=== PATIENT | female | born 2000 | race Caucasian/White ===

== ENCOUNTER 2019-12-10 12:31 | Emergency (ER) | payer OTHER ==
[2019-12-10 13:54] LABS: Absolute Lymphocytes (CBC) 2.4 K/uL (0.7-4.9); Basophils % 0.4 % (0-1.3); Hematocrit 38.7 % (36.0-45.0); MPV 7.9 fL (7.6-11.3); RBC Red Blood Cell Count 4.79 M/uL (3.86-4.86)
[2019-12-10 14:01] LABS: BUN Blood Urea Nitrogen 8 mg/dL (7-18); Bicarbonate 25 mmol/L (21-32); Glucose Level 95 mg/dL (74-106); Potassium 3.7 mmol/L (3.5-5.1); Sodium Level 141 mmol/L (136-145); Troponin (Emerg Dept Use Only) < 0.02 ng/mL (0.0-0.045)
--- NOTE | 2019-12-10 14:26 | RAD REPORT ---
EXAM DESCRIPTION: Amrita Single View12/10/2019 2:13 pm CLINICAL HISTORY: Chest pain COMPARISON: none FINDINGS: The lungs appear clear of acute infiltrate. The heart is normal size IMPRESSION: No acute abnormalities displayed
--- NOTE | 2019-12-10 14:41 | ER ---
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 Transition of care: patient was not received from another setting of care. Onset of symptoms was December 10, 2019. Risk Assessment: Do you want to hurt yourself or someone else? Patient reports no desire to harm self or others. Initial Sepsis Screen: Does the patient meet any 2 criteria? No. Patient's initial sepsis screen is negative. Does the patient have a suspected source of infection? No. Patient's initial sepsis screen is negative. Care prior to arrival: None. 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 - Social history:: Smoking status: Patient/guardian denies using tobacco. - Ebola Screening: : Patient negative for fever greater than or equal to 101.5 degrees Fahrenheit, and additional compatible Ebola Virus Disease symptoms Patient denies exposure to infectious person Patient denies travel to an Ebola-affected area in the 21 days before illness onset No symptoms or risks identified at this time. - Family history:: not pertinent. - Hospitalizations: : No recent hospitalization is reported. Screenin:09 Abuse screen: Denies threats or abuse. Nutritional screening: No deficits noted. em Tuberculosis screening: No symptoms or risk factors identified. Fall Risk None identified. Assessment: 13:48 General: Appears in no apparent distress. comfortable, Behavior is calm, cooperative, em appropriate for age, Denies fever. Pain: Complains of pain in chest Pain radiates to left arm Pain currently is 3 out of 10 on a pain scale. Neuro: Level of Consciousness is awake, alert, obeys commands, Oriented to person, place, time, situation, Appropriate for age. Cardiovascular: Reports chest pain, Capillary refill < 3 seconds Patient's skin is warm and dry. Rhythm is irregular. Respiratory: Reports pain with respiration Airway is patent Respiratory effort is even, unlabored, Respiratory pattern is regular, symmetrical. GI: Patient currently denies nausea, vomiting. Derm: Skin is intact, is healthy with good turgor, Skin is pink, warm \T\ dry. Musculoskeletal: Capillary refill < 3 seconds, Range of motion: intact in all extremities. 14:51 Reassessment: Patient appears in no apparent distress at this time. Patient and/or em family updated on plan of care and expected duration. Pain level reassessed. Patient is alert, oriented x 3, equal unlabored respirations, skin warm/dry/pink. Patient states feeling better. Vital Signs: 12:41 BP 144 / 75; Pulse 85; Resp 16; Temp 98.0; Pulse Ox 98% on R/A; Weight 84.37 kg; Height iw 5 ft. 7 in. (170.18 cm); Pain 3/10; 12:41 Body Mass Index 29.13 (84.37 kg, 170.18 cm) iw ED Course: 12:35 Patient arrived in ED. rg4 12:40 Triage completed. iw 12:41 Arm band placed on. iw 12:54 Harris Ann, RN is Primary Nurse. em 13:08 Seaed Fonseca MD is Attending Physician. rn 13:09 Patient has correct armband on for positive identification. Placed in gown. Bed in low em position. Call light in reach. Side rails up X2. 13:20 EKG done, by assessment technician. reviewed by Saeed Fonseca MD. at1 13:34 Initial lab(s) drawn, by me, sent to lab. Inserted saline lock: 22 gauge in left lt1 antecubital area, using aseptic technique. 14:13 XRAY Chest (1 view) In Process Unspecified. EDMS 14:50 No provider procedures requiring assistance completed. IV discontinued, intact, em bleeding controlled, No redness/swelling at site. Pressure dressing applied. Administered Medications: No medications were administered Outcome: 14:41 Discharge ordered by . rn 14:50 Discharged to home ambulatory, with family. em 14:50 Condition: good 14:50 Discharge instructions given to patient, Instructed on discharge instructions, follow up and referral plans. Demonstrated understanding of instructions, follow-up care. 14:51 Patient left the ED. em Signatures: Dispatcher [employer] EDHarris Carey RN RN em Williams, Irene, RN RN iw Nieto, Roman, MD MD rn Gonzales, Amanda, tong setter EKG Tat1 Gi Pathak rg4 Shepherd, Angelica lt1
--- NOTE | 2019-12-10 14:42 | EDPHYS ---
Physician Documentation [facility] Name: Kristina Nathan Age: 19 yrs Sex: Female : 2000 Arrival Date: 12/10/2019 Time: 12:35 Bed 28 Private MD: ED Physician Saeed Fonseca HPI: 12/10 14:33 This 19 yrs old Female presents to ER via Ambulatory with complaints of rn Abnormal EKG. 14:36 The patient or guardian reports chest pain that is located primarily in the anterior rn chest wall. The pain radiates to the left arm. Associated signs and symptoms: The patient has no apparent associated signs or symptoms, Pertinent negatives: abdominal pain, shortness of breath, syncope, vomiting. The chest pain is described as dull. Duration: The patient or guardian reports multiple episodes, that are intermittent. Modifying factors: The symptoms are alleviated by nothing. the symptoms are aggravated by nothing. Severity of pain: At its worst the pain was moderate in the emergency department the pain has improved. The patient has not experienced similar symptoms in the past. Sent by clinic for abnormal ecg and chest pain, has been going on for a few weeks, has hx of WPW and ablation but not totally successful, has been having cough and bronchitis for some time, and now having left sided chest pain, dull/achy, intermittent, and quick on and off. . 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 - Social history:: Smoking status: Patient/guardian denies using tobacco. - Ebola Screening: : Patient negative for fever greater than or equal to 101.5 degrees Fahrenheit, and additional compatible Ebola Virus Disease symptoms Patient denies exposure to infectious person Patient denies travel to an Ebola-affected area in the 21 days before illness onset No symptoms or risks identified at this time. - Family history:: not pertinent. - Hospitalizations: : No recent hospitalization is reported. ROS: 14:36 Constitutional: Negative for fever, chills, and weight loss, Eyes: Negative for injury, rn pain, redness, and discharge, Neck: Negative for injury, pain, and swelling, Cardiovascular: Negative for palpitations, and edema, Respiratory: Negative for shortness of breath, cough, wheezing, and pleuritic chest pain, Abdomen/GI: Negative for abdominal pain, nausea, vomiting, diarrhea, and constipation, MS/Extremity: Negative for injury and deformity, Skin: Negative for injury, rash, and discoloration, Neuro: Negative for headache, weakness, numbness, tingling, and seizure. Exam: 14:36 Constitutional: This is a well developed, well nourished patient who is awake, alert, rn and in no acute distress. Sitting upright and laughing. Head/Face: Normocephalic, atraumatic. Eyes: Pupils equal round and reactive to light, extra-ocular motions intact. Lids and lashes normal. Conjunctiva and sclera are non-icteric and not injected. Cornea within normal limits. Periorbital areas with no swelling, redness, or edema. Cardiovascular: Regular rate and rhythm. No pulse deficits. Respiratory: No increased work of breathing, no retractions or nasal flaring. Abdomen/GI: soft, non-tender Skin: Warm, dry with normal turgor. Normal color with no rashes, no lesions, and no evidence of cellulitis. MS/ Extremity: Pulses equal, no cyanosis. Neurovascular intact. Full, normal range of motion. Equal circumference. Neuro: Awake and alert, GCS 15, oriented to person, place, time, and situation. Cranial nerves II-XII grossly intact. Motor strength 5/5 in all extremities. Sensory grossly intact. 14:40 ECG was reviewed by the Attending Physician. rn Vital Signs: 12:41 BP 144 / 75; Pulse 85; Resp 16; Temp 98.0; Pulse Ox 98% on R/A; Weight 84.37 kg; Height iw 5 ft. 7 in. (170.18 cm); Pain 3/10; 12:41 Body Mass Index 29.13 (84.37 kg, 170.18 cm) iw MDM: 13:08 Patient medically screened. rn 14:36 Differential diagnosis: acute pericarditis, chest wall pain, costochondritis, pleurisy, rn pneumothorax. Data reviewed: vital signs, nurses notes, lab test result(s), EKG, radiologic studies, plain films, and as a result, I will discharge patient. Counseling: I had a detailed discussion with the patient and/or guardian regarding: the historical points, exam findings, and any diagnostic results supporting the discharge/admit diagnosis, lab results, radiology results, the need for outpatient follow up, to return to the emergency department if symptoms worsen or persist or if there are any questions or concerns that arise at home. Special discussion: Based on the patient's history, exam, and Dx evaluation, there is no indication for emergent intervention or inpatient Tx. It is understood by the patient/guardian that if the Sx's persist or worsen they need to return immediately for re-evaluation. I discussed with the patient/guardian in detail that at this point there is no indication for admission to the hospital. It is understood, however, that if the symptoms persist or worsen the patient needs to return immediately for re-evaluation. 12/10 13:21 Order name: CBC with Diff; Complete Time: 14: rn 12/10 13:21 Order name: Basic Metabolic Panel; Complete Time: 14: rn 12/10 13:21 Order name: Troponin (emerg Dept Use Only); Complete Time: 14:32 rn 12/10 13:21 Order name: D-Dimer; Complete Time: 14:32 rn 12/10 13:21 Order name: EKG; Complete Time: 13:22 rn 12/10 13:21 Order name: XRAY Chest (1 view); Complete Time: 14:32 rn 12/10 13:21 Order name: IV Start; Complete Time: :34 rn 12/10 13:21 Order name: EKG - Nurse/Tech; Complete Time: :34 rn EC:40 Rate is 73 beats/min. Rhythm is regular. QRS [place] is Normal. [place] interval is normal. QRS rn interval is normal. QT interval is normal. No Q waves. T waves are Normal. No ST changes noted. Clinical impression: NSR w/ Non-specific ST/T Changes. Interpreted by me. Reviewed by me. Administered Medications: No medications were administered Disposition: 12/10/19 14:41 Discharged to Home. Impression: Chest pain, unspecified. - Condition is Stable. - Discharge Instructions: Nonspecific Chest Pain. - Medication Reconciliation Form, Thank You Letter, Antibiotic Education, Prescription Opioid Use form. - Follow up: Private Physician; When: As needed; Reason: Recheck today's complaints, Re-evaluation by your physician. - Problem is an ongoing problem. - Symptoms have improved. Signatures: Dispatcher [employer] Harris Jerry, Ene Blackwood RN, RN RN iw Nieto, Roman, MD MD rn Corrections: (The following items were deleted from the chart) 14:51 14:41 12/10/2019 14:41 Discharged to Home. Impression: Chest pain, unspecified. em Condition is Stable. Forms are Medication Reconciliation Form, Thank You Letter, Antibiotic Education, Prescription Opioid Use. Follow up: Private Physician; When: As needed; Reason: Recheck today's complaints, Re-evaluation by your physician. Problem is an ongoing problem. Symptoms have improved. rn
--- NOTE | 2019-12-10 14:54 | EKG ---
Test Date: 2019-12-10 Test Time: 13:08:57 Poultry Buyer: PRIMO MEASUREMENT RESULTS: Intervals: Rate: 73 DE: 156 QRSD: 92 QT: 410 QTc: 451 [place]: P: 50 DE: 156 QRS: 13 T: 19 INTERPRETIVE STATEMENTS: Normal sinus rhythm with sinus arrhythmia normal ECG No previous ECG available for comparison Electronically Signed On 12-10-19 14:53:42 MASTER SCHEDULER by Adarsh Wall
[2019-12-10 16:36] VITALS: BP 144/75; TEMP 98; O2SAT 98
== END 2019-12-10 14:51 | disposition home or self-care (01) ==
LOC: ER 12:31
DX: R07.9 Chest pain, unspecified (principal)
CPT/HCPCS: 36415; 71045; 80048; 84484; 85025; 85379; 93005; 99284

== ENCOUNTER 2020-06-13 20:16 | Emergency (ER) | payer OTHER ==
--- OUTSIDE RECORDS SUMMARY | 2020-06-13 20:29 | XMS REPORT | Continuity of Care Document ---
:2000 Author Organization [facility] t Address [address] [place] [address] Care Team Providers Name Role Phone Duke RN Attending Clinician Unavailable Beth ROCK M Attending Clinician Pob1, Care Clinic Attending Clinician Unavailable Doctor Unassigned, Name Attending Clinician Unavailable Problems This patient has no known problems. Allergies, Adverse Reactions, Alerts This patient has no known allergies or adverse reactions. Medications This patient has no known medications. Procedures This patient has no known procedures. Encounters Start End Encounter Admission Attending Care Care Encounter Source Date/Time Date/Time Type Type Clinicians Facility Department ID 2020-02-23 2020-02-23 Telephone [facility] Wall [id number] 00:00:00 00:00:00 Ariana THOMPSON [id number] [facility] [id number] 2020-02-22 2020-02-22 Telephone Beth [facility] [id number] 00:00:00 00:00:00 , [facility] [id number] [facility] [id number] Professio [phone] [address] 2020-02-21 2020-02-21 Urgent Pob1, Acute [facility] [id number] 12:37:37 12:57:37 [facility] [id number] [place] [id number] Professio [phone] nal [address] 2020-02-21 2020-02-21 Orders Doctor PECK [id number] 00:00:00 00:00:00 Only Unassigned, CRISTY [id number] [place] [facility] [id number] Results This patient has no known results.
[2020-06-13 22:32] LABS: Absolute Lymphocytes (CBC) 3.4 K/uL (0.7-4.9); Basophils % 0.5 % (0-1.3); Hematocrit 37.6 % (36.0-45.0); Lymphocytes % 21.5 % (15.3-44.8); RBC Red Blood Cell Count 4.62 M/uL (3.86-4.86)
[2020-06-13 22:55] LABS: ALT/SGPT 19 U/L (12-78); AST/SGOT 13 U/L (15-37); Albumin 3.3 g/dL (3.4-5.0); Alkaline Phosphatase 84 U/L (45-117); BUN Blood Urea Nitrogen 12 mg/dL (7-18); Bicarbonate 24 mmol/L (21-32); Bilirubin Direct < 0.1 mg/dL (0-0.2); Bilirubin Total 0.2 mg/dL (0.2-1.0); Glucose Level 102 mg/dL (74-106); Magnesium 2.3 mg/dL (1.8-2.4); NT PRO-BNP 68 pg/mL (<125); Potassium 3.7 mmol/L (3.5-5.1); Protein, Total 7.6 g/dL (6.4-8.2); Sodium Level 140 mmol/L (136-145)
--- NOTE | 2020-06-13 23:08 | EDPHYS ---
Physician Documentation [facility] Name: Kristina Nathan Age: 19 yrs Sex: Female : 2000 Arrival Date: 06/13/2020 Time: 20:22 Bed 14 Private MD: ED Physician Manuel Naranjo HPI: 06/13 22:21 This 19 yrs old Female presents to ER via Ambulatory with complaints of jr8 Fainting. 22:21 The patient has experienced syncope. Onset: The symptoms/episode began/occurred jr8 acutely, today. Duration: This was a single episode. Context: occurred at work. Associated injury: The patient did not suffer any apparent associated injury. Associated signs and symptoms: Pertinent positives: dizziness. Current symptoms: headache, that is mild. The patient has not experienced similar symptoms in the past. The patient has not recently seen a physician. Patient stated that he just findings with a small gibson at work. Went to take a drink of her soda. Stated that she started to feel dizzy and then woke up on floor. Then had panic attack. This was about 17:00 this evening. Feeling better now but wanted to make sure she was ok . 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 - Social history:: Smoking status: Patient denies any tobacco usage or history of. Patient uses alcohol, only on a social basis. Patient/guardian denies using IV drugs. ROS: 22:21 Eyes: Negative for injury, pain, redness, and discharge, ENT: Negative for injury, jr8 pain, and discharge, Neck: Negative for injury, pain, and swelling, Cardiovascular: Negative for chest pain, palpitations, and edema, Respiratory: Negative for shortness of breath, cough, wheezing, and pleuritic chest pain, Abdomen/GI: Negative for abdominal pain, nausea, vomiting, diarrhea, and constipation, Back: Negative for injury and pain, MS/Extremity: Negative for injury and deformity, Skin: Negative for injury, rash, and discoloration. 22:21 Neuro: Positive for syncope. Exam: 22:21 Eyes: Pupils equal round and reactive to light, extra-ocular motions intact. Lids and jr8 lashes normal. Conjunctiva and sclera are non-icteric and not injected. Cornea within normal limits. Periorbital areas with no swelling, redness, or edema. ENT: Nares patent. No nasal discharge, no septal abnormalities noted. Tympanic membranes are normal and external auditory canals are clear. Oropharynx with no redness, swelling, or masses, exudates, or evidence of obstruction, uvula midline. Mucous membranes moist. Neck: Trachea midline, no thyromegaly or masses palpated, and no cervical lymphadenopathy. Supple, full range of motion without nuchal rigidity, or vertebral point tenderness. No Meningismus. Cardiovascular: Regular rate and rhythm with a normal S1 and S2. No gallops, murmurs, or rubs. Normal PMI, no JVD. No pulse deficits. Respiratory: Lungs have equal breath sounds bilaterally, clear to auscultation and percussion. No rales, rhonchi or wheezes noted. No increased work of breathing, no retractions or nasal flaring. Abdomen/GI: Soft, non-tender, with normal bowel sounds. No distension or tympany. No guarding or rebound. No evidence of tenderness throughout. Back: No spinal tenderness. No costovertebral tenderness. Full range of motion. Skin: Warm, dry with normal turgor. Normal color with no rashes, no lesions, and no evidence of cellulitis. MS/ Extremity: Pulses equal, no cyanosis. Neurovascular intact. Full, normal range of motion. Neuro: Awake and alert, GCS 15, oriented to person, place, time, and situation. Cranial nerves II-XII grossly intact. Motor strength 5/5 in all extremities. Sensory grossly intact. Cerebellar exam normal. Normal gait. Vital Signs: 20:42 BP 140 / 92; Pulse 85; Resp 18; Temp 98.0; Pulse Ox 100% ; Pain 0/10; ll1 22:13 BP 134 / 83 Sitting; Pulse 85; Resp 18; Pulse Ox 100% on R/A; ks7 22:13 BP 133 / 76 Supine; Pulse 74; Resp 16; Pulse Ox 100% on R/A; ks7 22:15 BP 149 / 70 Standing; Pulse 78; Resp 17; Pulse Ox 98% on R/A; ks7 22:26 BP 133 / 76; Pulse 74; Resp 16; Temp 98.2(O); Pulse Ox 100% on R/A; Pain 0/10; ks7 23:13 BP 124 / 75; Pulse 72; Resp 16; Temp 98.4(O); Pulse Ox 100% on R/A; Pain 0/10; ks7 22:13 denies dizziness ks7 22:15 denies dizziness ks7 MDM: 21:32 Patient medically screened. jr8 23:06 Data reviewed: vital signs, nurses notes, lab test result(s), EKG, radiologic studies, jr8 plain films, and as a result, I will discharge patient. Data interpreted: Pulse oximetry: on room air is 100 %. Interpretation: normal. Counseling: I had a detailed discussion with the patient and/or guardian regarding: the historical points, exam findings, and any diagnostic results supporting the discharge/admit diagnosis, the presence of at least one elevated blood pressure reading (>120/80) during this emergency department visit, radiology results, the need for outpatient follow up, a family practitioner, to return to the emergency department if symptoms worsen or persist or if there are any questions or concerns that arise at home. ED course: Patient feeling better. Hemodynamically stable. No acute findings on labs, ecg, or imagine. Recommended f/u with PCP. If worse or if it happens again to come back to ED. patient good with plan . 06/13 21:59 Order name: Basic Metabolic Panel; Complete Time: 23:06 [facility] 06/13 21:59 Order name: CBC with Diff; Complete Time: 22:44 [facility] 06/13 21:59 Order name: LFT's; Complete Time: 23:06 06/13 21:59 Order name: Magnesium; Complete Time: 23:06 [facility] 06/13 21:59 Order name: NT PRO-BNP; Complete Time: 23:06 [facility] 06/13 21:59 Order name: XRAY Chest (1 view) 06/13 21:59 Order name: EKG; Complete Time: 21:59 06/13 21:59 Order name: Cardiac monitoring; Complete Time: 22:24 [facility] 06/13 21:59 Order name: EKG - Nurse/Tech; Complete Time: 22:24 [facility] 06/13 21:59 Order name: IV Saline Lock; Complete Time: 22:24 8 06/13 21:59 Order name: Labs collected and sent; Complete Time: 22:24 8 06/13 21:59 Order name: O2 Per Protocol; Complete Time: 22:24 8 06/13 21:59 Order name: O2 Sat Monitoring; Complete Time: 22:25 06/13 21:59 Order name: Orthostatics; Complete Time: 22:24 8 Administered Medications: No medications were administered Disposition: 06/14 00:39 Co-signature as Attending Physician, Manuel Naranjo MD. epifanio Disposition: 06/13/20 23:07 Discharged to Home. Impression: Syncope and collapse. - Condition is Stable. - Discharge Instructions: Syncope. - Work release form, Medication Reconciliation Form, Thank You Letter, Antibiotic Education, Prescription Opioid Use form. - Follow up: Private Physician; When: 2 - 3 days; Reason: Recheck today's complaints, Continuance of care, Re-evaluation by your physician. - Problem is new. - Symptoms are resolved. Signatures: Dispatcher [employer] EDManuel Siddiqi MD MD pkl Roszak, Josh, PA PA jr8 Javon Butler RN RN ll1 Gabriella Dominique RN RN ks7 Corrections: (The following items were deleted from the chart) 06/13 23:41 20:46 PMHx: WPW; 1 ks7 23:41 20:46 PMHx: Anxiety; 1 ks7 23:41 20:46 PSHx: cardiac ablation; 1 ks7 23:42 23:07 06/13/2020 23:07 Discharged to Home. Impression: Syncope and collapse. Condition ks7 is Stable. Forms are Medication Reconciliation Form, Thank You Letter, Antibiotic Education, Prescription Opioid Use. Follow up: Private Physician; When: 2 - 3 days; Reason: Recheck today's complaints, Continuance of care, Re-evaluation by your physician. Problem is new. Symptoms are resolved. jr8
--- NOTE | 2020-06-13 23:08 | ER ---
Nurse's Notes [facility] Name: Kristina Nathan Age: 19 yrs Sex: Female : 2000 Arrival Date: 06/13/2020 Time: 20:22 Bed 14 Private MD: Diagnosis: Syncope and collapse Presentation: 06/13 20:42 Chief complaint: Patient states: Sudden onset of left upper abdominal pain today at ll1 1700 at work. Got dizzy, then passed out onto floor. No new diet. Only new med. for 1.5 months for arthritis pain. No N/V/D. Coronavirus screen: Patient denies a cough. Patient denies shortness of breath or difficulty breathing. Patient denies measured and/or subjective temperature greater than 100.4F prior to today's visit. Patient denies travel on a cruise ship or to a country the [facility] currently lists as an affected area. Patient denies contact with known and/or suspected case of COVID-19. Proceed with normal triage. Ebola Screen: Patient denies travel to an Ebola-affected area in the 21 days before illness onset. Initial Sepsis Screen: Does the patient meet any 2 criteria? No. Patient's initial sepsis screen is negative. Risk Assessment: Do you want to hurt yourself or someone else? Patient reports no desire to harm self or others. Onset of symptoms was June 13, 2020. 20:42 Method Of Arrival: Ambulatory ll1 20:42 Acuity: WILLIE 3 ll1 23:41 Initial Sepsis Screen: Does the patient have a suspected source of infection? No. ks7 Patient's initial sepsis screen is negative. Triage Assessment: 22:26 General: Appears in no apparent distress. Behavior is calm, cooperative. Pain: Denies ks7 pain. 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 - Social history:: Smoking status: Patient denies any tobacco usage or history of. Patient uses alcohol, only on a social basis. Patient/guardian denies using IV drugs. Screenin:27 Abuse screen: Denies threats or abuse. Nutritional screening: No deficits noted. ks7 Tuberculosis screening: No symptoms or risk factors identified. Fall Risk Fall in past 12 months (25 points). Secondary diagnosis (15 points) IV access (20 points). Ambulatory Aid- None/Bed Rest/Nurse Assist (0 pts). Gait- Normal/Bed Rest/Wheelchair (0 pts) Mental Status- Oriented to own ability (0 pts). Total Santacruz Fall Scale indicates High Risk Score (45 or more points). Fall prevention measures have been instituted. Side Rails Up X 2 As available patient and family educated on Fall Prevention Program and Strategies. Assessment: 22:27 General: Reports pt comes in from home. states she had syncopal episode at work today. ks7 passed out for a few minutes. pt denies any trauma, denies pain to extremities, c/o mild KULKARNI. pt has hx of WPW syndrome. Pain: Complains of pain in headache Pain currently is 4 out of 10 on a pain scale. 23:40 Reassessment: Patient is alert, oriented x 3, equal unlabored respirations, skin ks7 warm/dry/pink. Vital Signs: 20:42 BP 140 / 92; Pulse 85; Resp 18; Temp 98.0; Pulse Ox 100% ; Pain 0/10; ll1 22:13 BP 134 / 83 Sitting; Pulse 85; Resp 18; Pulse Ox 100% on R/A; ks7 22:13 BP 133 / 76 Supine; Pulse 74; Resp 16; Pulse Ox 100% on R/A; ks7 22:15 BP 149 / 70 Standing; Pulse 78; Resp 17; Pulse Ox 98% on R/A; ks7 22:26 BP 133 / 76; Pulse 74; Resp 16; Temp 98.2(O); Pulse Ox 100% on R/A; Pain 0/10; ks7 23:13 BP 124 / 75; Pulse 72; Resp 16; Temp 98.4(O); Pulse Ox 100% on R/A; Pain 0/10; ks7 22:13 denies dizziness ks7 22:15 denies dizziness ks7 Vitals: 22:27 Cardiac Rhythm Assessment Sinus rhythm. ks7 ED Course: 20:22 Patient arrived in ED. ag3 20:45 Triage completed. ll1 20:46 Arm band placed on Patient notified of wait time. ll1 21:32 Tarik Tejeda PA is PHCP. jr8 21:32 Manuel Naranjo MD is Attending Physician. jr8 22:05 Gabriella Dominique, RN is Primary Nurse. ks7 22:24 Basic Metabolic Panel Sent. ks7 22:24 CBC with Diff Sent. ks7 22:24 LFT's Sent. ks7 22:24 Magnesium Sent. ks7 22:24 NT PRO-BNP Sent. ks7 22:24 XRAY Chest (1 view) Sent. ks7 22:27 Resting quietly. ks7 22:27 Patient has correct armband on for positive identification. Placed in gown. Bed in low ks7 position. Call light in reach. Side rails up X2. 22:27 No provider procedures requiring assistance completed. Inserted saline lock: 20 gauge ks7 in left antecubital area, using aseptic technique. Blood collected. 22:29 XRAY Chest (1 view) In Process Unspecified. EDMS 23:40 IV discontinued, intact, bleeding controlled, No redness/swelling at site. Pressure ks7 dressing applied. Administered Medications: No medications were administered Outcome: 23:07 Discharge ordered by . jr8 23:40 Discharged to home ambulatory, with family. ks7 23:40 Condition: good 23:40 Discharge instructions given to patient, Instructed on discharge instructions, Demonstrated understanding of instructions, Work not given to pt 23:42 Patient left the ED. ks7 Signatures: Dispatcher [employer] EDMS Tarik Tejeda PA PA jr8 Christina Allen ag3 Javon Butler RN RN 1 Gabriella Dominique, RN RN ks7 Corrections: (The following items were deleted from the chart) 22:30 22:27 Fall Risk Fall in past 12 months (25 points). Secondary diagnosis (15 points) IV ks7 access (20 points). Ambulatory Aid- None/Bed Rest/Nurse Assist (0 pts). Gait- Normal/Bed Rest/Wheelchair (0 pts) Mental Status- Oriented to own ability (0 pts). Total Santacruz Fall Scale indicates High Risk Score (45 or more points). ks7 23:41 20:46 PMHx: WPW; ll1 ks7 23:41 20:46 PMHx: Anxiety; ll1 ks7 23:41 20:46 PSHx: cardiac ablation; ll1 ks7
[2020-06-14 00:33] VITALS: O2SAT 100
[2020-06-14 00:35] VITALS: BP 124/75; TEMP 98.4
--- NOTE | 2020-06-14 11:24 | RAD REPORT ---
EXAM DESCRIPTION: Amrita Single View06/13/2020 10:29 pm CLINICAL HISTORY: Abdominal pain COMPARISON: November 2019 FINDINGS: The lungs appear clear of acute infiltrate. The heart is normal size IMPRESSION: No acute abnormalities displayed
== END 2020-06-13 23:42 | disposition home or self-care (01) ==
LOC: ER 20:16
DX: R55 Syncope and collapse (principal); I45.6 Pre-excitation syndrome
CPT/HCPCS: 36415; 71045; 80048; 80076; 83735; 83880; 85025; 99284

== ENCOUNTER 2022-03-11 19:31 | Emergency (ER) | payer OTHER ==
[2022-03-11 23:08] LABS: Absolute Lymphocytes (CBC) 3.4 K/uL (0.7-4.9); Hematocrit 36.9 % (36.0-45.0); Lymphocytes % 21.1 % (15.3-44.8); MPV 7.7 fL (7.6-11.3); RBC Red Blood Cell Count 4.64 M/uL (3.86-4.86)
[2022-03-11 23:26] LABS: Urine Blood 1+ (Negative); Urine Glucose Negative (Negative); Urine Protein Negative (Negative); Urine Specific Gravity >=1.030 (1.005-1.030)
[2022-03-11 23:35] LABS: BUN Blood Urea Nitrogen 14 mg/dL (7-18); Bicarbonate 24 mmol/L (21-32); Glucose Level 93 mg/dL (74-106); Potassium 3.6 mmol/L (3.5-5.1); Sodium Level 137 mmol/L (136-145)
[2022-03-11 23:48] LABS: HCG, Quantitative 52337 mIU/mL (1-3)
--- NOTE | 2022-03-11 23:58 | ER ---
Nurse's Notes [facility] Name: Kristina Nathan Age: 21 yrs Sex: Female : 2000 Arrival Date: 03/11/2022 Time: 19:33 Bed 24 Private MD: Diagnosis: Threatened Presentation: 03/11 19:43 Chief complaint: Patient states: I started bleeding this morning and I am about 2 month jb4 . This morning it was light and brown with clots. Now it is heavy and bright red. Coronavirus screen: At this time, the client does not indicate any symptoms associated with coronavirus-19. Ebola Screen: No symptoms or risks identified at this time. Initial Sepsis Screen: Does the patient meet any 2 criteria? No. Patient's initial sepsis screen is negative. Does the patient have a suspected source of infection? No. Patient's initial sepsis screen is negative. Risk Assessment: Do you want to hurt yourself or someone else? Patient reports no desire to harm self or others. Onset of symptoms was March 11, 2022. Transition of care: patient was not received from another setting of care. 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 - Social history:: Smoking status: Patient reports the use of cigarette tobacco products, Patient/guardian denies using alcohol, street drugs. Screenin:20 Abuse screen: Denies threats or abuse. Nutritional screening: No deficits noted. fu Tuberculosis screening: No symptoms or risk factors identified. Fall Risk None identified. Assessment: 21:18 General: Appears in no apparent distress. Behavior is calm, cooperative, appropriate fu for age, Denies fever, feeling ill, fatigue, chills. Pain: Complains of pain in abdomen Pain does not radiate. Pain currently is 2 out of 10 on a pain scale. Quality of pain is described as crampy. Neuro: Level of Consciousness is awake, alert, Oriented to person, place, time, situation, Moves all extremities. Gait is steady, Speech is normal, Facial symmetry appears normal. : Reports vaginal bleeding that is with clots. Derm: No signs and/or symptoms reported regarding the dermatologic system. 22:00 Reassessment: No changes from previously documented assessment. Patient and/or family fu updated on plan of care and expected duration. Pain level reassessed. Patient is alert, oriented x 3, equal unlabored respirations, skin warm/dry/pink. 23:50 Reassessment: Patient and/or family updated on plan of care and expected duration. Pain fu level reassessed. Patient is alert, oriented x 3, equal unlabored respirations, skin warm/dry/pink. Vital Signs: 19:43 BP 126 / 81; Pulse 88; Resp 18; Temp 98.1(TE); Pulse Ox 100% on R/A; Weight 94.35 kg jb4 (R); Height 5 ft. 7 in. (170.18 cm) (R); Pain 2/10; 21:16 BP 102 / 53; Pulse 80; Resp 16; Temp 98.(O); Pulse Ox 100% ; Pain 2/10; fu 22:30 BP 132 / 58; Pulse 72; Resp 16; Pulse Ox 100% on R/A; fu 23:00 BP 132 / 96; Pulse 82; Resp 16; Pulse Ox 96% on R/A; fu 23:30 BP 132 / 67; Pulse 71; Resp 16; Pulse Ox 100% ; fu 23:47 BP 132 / 87; Pulse 81; Resp 16; Pulse Ox 100% on R/A; fu 19:43 Body Mass Index 32.58 (94.35 kg, 170.18 cm) jb4 ED Course: 19:33 Patient arrived in ED. mr 19:41 Estevan Schwartz, THIEN is Primary Nurse. jb4 19:46 Triage completed. jb4 19:46 Arm band placed on right wrist. jb4 19:57 Marcial John PA is PHCP. cp 19:57 Wyatt Sullivan MD is Attending Physician. cp 22:40 Inserted saline lock: 20 gauge in left antecubital area, using aseptic technique. Blood fu collected. 22:59 Chriss Campbell, RN is Primary Nurse. fu 23:28 US Transvaginal Ob In Process Unspecified. EDMS 23:58 Patient has correct armband on for positive identification. Bed in low position. Call fu light in reach. 23:58 No provider procedures requiring assistance completed. fu 03/12 00:12 IV discontinued, bleeding controlled, No redness/swelling at site. Pressure dressing fu applied. Administered Medications: No medications were administered Outcome: 03/11 23:57 Discharge ordered by MD. cp 03/12 00:12 Discharged to home ambulatory, with significant other. fu Condition: good Discharge instructions given to patient, Instructed on discharge instructions, follow up and referral plans. Demonstrated understanding of instructions, follow-up care, Prescriptions given X 1. 00:14 Patient left the ED. fu Signatures: Dispatcher [employer] EDAL Valerie Murrell Corey, DOE PA cp Estevan Schwartz, RN RN jb4 Chriss Campbell, RN RN fu
--- NOTE | 2022-03-11 23:58 | EDPHYS ---
Physician Documentation [facility] Name: Kristina Nathan Age: 21 yrs Sex: Female : 2000 Arrival Date: 03/11/2022 Time: 19:33 Bed 24 Private MD: ED Physician Wyatt Sullivan HPI: 03/11 22:30 This 21 yrs old Female presents to ER via Ambulatory with complaints of Vaginal cp Bleeding, + Preg <12wks, Abdominal Cramping. 22:30 The patient presents to the emergency department with abdominal pain, of the right cp lower quadrant and left lower quadrant, that started today, described as crampy, vaginal bleeding, that is moderate, with clots. The estimated gestational age is 7 weeks. course: care: at a clinic, Leakage of Fluid: none appreciated, Ultrasound: the patient had an ultrasound. Previous pregnancies: in previous pregnancies patient has had spontaneous . Associated signs and symptoms: The patient has no apparent associated signs or symptoms. 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 - Social history:: Smoking status: Patient reports the use of cigarette tobacco products, Patient/guardian denies using alcohol, street drugs. ROS: 22:35 Constitutional: Negative for body aches, chills, fever, poor PO intake. cp 22:35 Eyes: Negative for injury, pain, redness, and discharge. cp 22:35 ENT: Negative for drainage from ear(s), ear pain, sore throat, difficulty swallowing, difficulty handling secretions. 22:35 Cardiovascular: Negative for chest pain. 22:35 Respiratory: Negative for cough, shortness of breath, wheezing. 22:35 Abdomen/GI: Positive for abdominal cramps, Negative for vomiting, diarrhea, constipation. 22:35 Back: Negative for pain at rest, pain with movement. 22:35 : Positive for vaginal bleeding. 22:35 Neuro: Negative for altered mental status, weakness. 22:35 All other systems are negative. Exam: 22:40 Head/Face: Normocephalic, atraumatic. cp 22:40 Constitutional: The patient appears in no acute distress, alert, awake, comfortable, non-toxic, well developed, well nourished. 22:40 Eyes: Periorbital structures: appear normal, Conjunctiva: normal, no exudate, no cp injection, Lids and lashes: appear normal, bilaterally. 22:40 ENT: External ear(s): are unremarkable, Nose: is normal, Mouth: Lips: moist, Oral mucosa: moist, Posterior pharynx: Airway: no evidence of obstruction, patent. 22:40 Chest/axilla: Inspection: normal. 22:40 Cardiovascular: Rate: normal, Rhythm: regular. 22:40 Respiratory: the patient does not display signs of respiratory distress, Respirations: normal, no use of accessory muscles, no retractions, labored breathing, is not present, Breath sounds: are clear throughout, no decreased breath sounds, no stridor, no wheezing. 22:40 Abdomen/GI: Inspection: abdomen appears normal, Palpation: soft, in all quadrants, mild abdominal tenderness, in the suprapubic area and left lower quadrant, rebound tenderness, is not appreciated, voluntary guarding, is not appreciated, involuntary guarding, is not appreciated. 22:40 Back: CVA tenderness, is absent. Vital Signs: 19:43 BP 126 / 81; Pulse 88; Resp 18; Temp 98.1(TE); Pulse Ox 100% on R/A; Weight 94.35 kg jb4 (R); Height 5 ft. 7 in. (170.18 cm) (R); Pain 2/10; 21:16 BP 102 / 53; Pulse 80; Resp 16; Temp 98.(O); Pulse Ox 100% ; Pain 2/10; fu 22:30 BP 132 / 58; Pulse 72; Resp 16; Pulse Ox 100% on R/A; fu 23:00 BP 132 / 96; Pulse 82; Resp 16; Pulse Ox 96% on R/A; fu 23:30 BP 132 / 67; Pulse 71; Resp 16; Pulse Ox 100% ; fu 23:47 BP 132 / 87; Pulse 81; Resp 16; Pulse Ox 100% on R/A; fu 19:43 Body Mass Index 32.58 (94.35 kg, 170.18 cm) jb4 MDM: 20:36 Patient medically screened. cp 22:30 Differential diagnosis: STD, ectopic , UTI. cp 23:55 Data reviewed: vital signs, nurses notes, lab test result(s), radiologic studies, cp ultrasound. 23:55 Counseling: I had a detailed discussion with the patient and/or guardian regarding: the cp historical points, exam findings, and any diagnostic results supporting the discharge/admit diagnosis, lab results, radiology results, the need for outpatient follow up, an OB/Gyne specialist, to return to the emergency department if symptoms worsen or persist or if there are any questions or concerns that arise at home. ED course: VSS. Discussed results of labs and US showing single viable IUP. Exam of abdomen benign. Patient reports vaginal bleeding improved. Will discharge to home for continued monitoring. 03/11 21:53 Order name: Abo/rh Typing; Complete Time: 23:42 03/11 23:42 Interpretation: Reviewed. 03/11 21:53 Order name: Basic Metabolic Panel; Complete Time: 23:50 03/11 23:43 Interpretation: Reviewed. 03/11 21:53 Order name: CBC with Diff; Complete Time: 23:30 03/11 23:30 Interpretation: Normal except: WBC 16.2; MCV 79.6; MCH 26.8; NEUT A 11.2. 03/11 21:53 Order name: Quantitative Hcg; Complete Time: 23:50 03/11 23:50 Interpretation: Reviewed. 03/11 23:26 Order name: Urine Dipstick-Ancillary; Complete Time: 23:30 EDMS 03/11 23:27 Order name: Urine --Ancillary (enter results); Complete Time: 23:50 cs9 03/11 21:53 Order name: IV Saline Lock; Complete Time: 22:49 cp 03/11 21:53 Order name: Labs collected and sent; Complete Time: 22:57 cp 03/11 21:53 Order name: NPO; Complete Time: 23:59 03/11 21:53 Order name: Urine Dipstick-Ancillary (obtain specimen); Complete Time: 23:26 cp 03/11 21:53 Order name: Urine Test (obtain specimen); Complete Time: 23:26 cp 03/11 22:30 Order name: US Transvaginal Ob cp Administered Medications: No medications were administered Disposition: 03/12 01:22 Co-signature as Attending Physician, Wyatt Sullivan MD I agree with the assessment and kdr plan of care. Disposition Summary: 03/11/22 23:57 Discharge Ordered Location: Home cp Problem: new cp Symptoms: have improved cp Condition: Stable cp Diagnosis - Threatened cp Followup: cp - With: Private Physician - When: 1 week - Reason: Recheck today's complaints Discharge Instructions: - Discharge Summary Sheet cp - Abdominal Pain During cp - Care cp - Threatened Miscarriage cp - Vaginal Bleeding During , First Trimester cp - Activity Restriction During cp Forms: - Medication Reconciliation Form cp - Thank You Letter cp - Antibiotic Education cp - Prescription Opioid Use cp Prescriptions: - 147-iron gluc-folic 13 mg iron- 1 mg Oral tablet - take 1 tablet by ORAL route once daily; 30 tablet; Refills: 0, Product cp Selection Permitted Signatures: Dispatcher [employer] EDWyatt Marina MD MD [facility] Marcial John PA PA cp Estevan Schwartz, RN RN jb4 Corrections: (The following items were deleted from the chart) 19:52 03/11 23:10 Constitutional: Negative for body aches, chills, fever, poor PO intake, cp cp
[2022-03-12 07:42] VITALS: TEMP 98
[2022-03-12 07:47] VITALS: O2SAT 100
[2022-03-12 07:49] VITALS: BP 132/87
--- NOTE | 2022-03-12 12:05 | RAD REPORT ---
EXAM DESCRIPTION: US - Transvaginal OB - 03/12/2022 12:26 am CLINICAL HISTORY: 21 years, Female, VAGINAL BLEEDING COMPARISON: None. TECHNIQUE: Utilizing a transvaginal array transducer, real-time ultrasound evaluation of the female pelvis was performed. Color Doppler imaging was used to assess vascular flow. FINDINGS: The uterus measures 8.3 x 4.6 x 5 cm. A gestational sac demonstrate normal shape and confi guration with a pole with a mean measurement of 1.11 cm lytic the corresponding to a ultrasonog raphic gestational age of 7 weeks and 2 days with an estimated date of delivery October 26, 2022, yo lk sac was identified measuring 0.23 cm. Cardiac activity was documented at 158 beats per minutes. Th ere is no evidence for subchronic hemorrhage The right ovary measured 2.2 x 1.6 x 1.9 cm, the left ovary measures 4.5 x 3.4 x 3.6 cm. There is nor mal vascular flow and spectral waveforms with no evidence for torsion. There is a left ovarian cyst m easuring 2.3 x 2.5 x 2.8 cm. No free fluid was identified in the posterior cul-de-sac, no adnexal masses seen. IMPRESSION: SINGLE EARLY LIVING INTRAUTERINE CORRESPONDING TO A ULTRASONOGRAPHIC GESTATION AL AGE OF 7 WEEKS AND 2 DAYS. LEFT OVARIAN SIMPLE CYST MEASURING 2.5 CM. NO FOLLOW-UP IS RECOMMENDED. Electronically signed by: Yury Pulliam MD 03/12/2022 12:07 AM CDT Due to temporary technical issues with the PACS/Fluency reporting system, reports are being signed by the in house radiologist without review as a courtesy to ensure prompt reporting. The interpreting r adiologist is fully responsible for the content of the report.
== END 2022-03-12 00:14 | disposition home or self-care (01) ==
LOC: ER 19:31
DX: O20.0 Threatened abortion (principal); F41.9 Anxiety disorder, unspecified; F17.210 Nicotine dependence, cigarettes, uncomplicated
CPT/HCPCS: 36415; 76817; 80048; 81003; 81025; 84702; 85025; 86900; 86901; 99284

== ENCOUNTER 2022-08-15 23:35 | Emergency (ER) | payer OTHER ==
--- OUTSIDE RECORDS SUMMARY | 2022-08-15 23:38 | XMS REPORT | Continuity of Care Document ---
:2000 Author Organization [facility] t Address [address] [place] [address] Care Team Providers Name Role Phone YNENY CHUNG Primary Care Physician Unavailable YENNY CHUNG Attending Clinician Unavailable Yenny Inman Attending Clinician [phone] Charmaine Ross Attending Clinician CHARMAINE ZARAGOZA Attending Clinician Unavailable Lab, Ang-Rmchp Attending Clinician Unavailable Risk, Cwy-Sprmh-Pv/High Attending Clinician Unavailable JILL DOHERTY Attending Clinician Unavailable Doctor Unassigned, [place] Attending Clinician Unavailable Ron Kat Attending Clinician Ultrasound, Ang-Mfm Attending Clinician Unavailable Belkis Houser MD Attending Clinician [phone] BELKIS HOUSER Attending Clinician Unavailable Ariana Wall RN Attending Clinician Unavailable Carolina Campos MD Attending Clinician [phone] VIRI GONZALEZ Attending Clinician Unavailable Pob1, [facility] Attending Clinician Unavailable CHARMAINE ZARAGOZA Admitting Clinician Unavailable Payers Payer Name Policy Type Policy Number Effective Date Expiration Date Ney APONTE [id number] 2022 HEALTH 00:00:00 SRC AN AETNA [id number] 2018 COMPANY 00:00:00 Problems Condition Condition Condition Status Onset Resolution Last Treating Co mments Source Name Details Category Date Date Treatment Clinician Date High-risk High-risk Disease Active Uni vers 07-30 ity of [place] 00 [facility] Branch Rubella Rubella Disease Active Overview: Univ ers non-immune non-immune 06-10 Formattin ity of status, status, 00:00: g of this [place] antepartum antepartum 00 note Me dical might be Branch different from the original. Address pp Supervisio Supervisio Disease Active Overview : Univers n of n of 06-09 Formattin ity of high-risk high-risk 00:00: [place] this [place] 00 note [facility] with with might be Branch insufficie insufficie different nt nt from the original. care care Records received panorama wnl History of History of Disease Active U nivers miscarriag miscarriag 06-09 it y of e e 00:00: Medical Branch History of History of Disease Active Overview : Univers anxiety anxiety 06-09 Formattin ity o f 00:00: g of this note Medical might be Branch different from the original. Reports on lexapro but not daily Obesity in Obesity in Disease Active U nivers 06-09 ity of 00:00: Medical Branch Generalize Generalize Disease Active Overview : Univers d d 06-09 Formattin ity of psoriasis psoriasis 00:00: g of this [place] note Medical might be Branch different from the original. 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 Reports she had surgery but states it was not effective Breast Breast Disease Active Univers mass, mass, 06-09 ity of right right 00:00: Medical Branch No known No known Disease Unive rs active active ity of problems problems [facility] Branch Allergies, Adverse Reactions, Alerts Allergy Allergy Status Severity Reaction(s) Onset Inactive Treating Comm ents Source Name Type Date Date Clinician NO KNOWN Drug Active Univers ALLERGIE Class ity of S [facility] Social History Social Habit Start Date Stop Date Quantity Comments Source ASSERTION 2022-02-03 [facility] 00:00:00 [facility] Exposure to 2022-08-02 2022-08-12 Not sure [facility] SARS-CoV-2 00:00:00 13:37:00 [facility] (event) [place] Alcohol intake 2022-08-12 2022-08-12 Ex-drinker [facility] 00:00:00 00:00:00 (finding) [facility] Tobacco use and 2022-06-09 2022-06-09 Smokeless tobacco Un iversity of exposure 00:00:00 00:00:00 non-user [facility] Sex Assigned At [birth year] Universit y of 00:00:00 00:00:00 [facility] Smoking Status Start Date Stop Date Source Never smoked tobacco [facility] Medications Ordered Filled Start Stop Current Ordering Indication Dosage Frequency Signature Comments Components Source Medication Medication Date Date Medication? Clinician (SIG) Name Name escitalopra 2021- No 10mg Take 10 mg Univers m oxalate 06-26 by mouth ity o f 10 mg 20:51: 00:00 daily. [place] tablet 35 :00 [facility] MELOXICAM 2021- No Take by [employer] ers ORAL 06-26 mouth. ity of 20:51: 00:00 [place] 20 :00 [facility] Branch norgestimat 2021- No Take by Un cosme e-ethinyl 06-24 mouth. ity of estradiol 13:53: 00:00 [place] (MONO-LINYA 24 :00 Medical H ORAL) Branch Yes Take by DGTS vit 7-13 mouth. ity of no.124/iron 14:01: [place] /folic 45 Medical ( Branch VITAMIN ORAL) Yes Take by [facility]TS vit 7-13 mouth. ity of no.124/iron 14:01: [place] /folic 45 Medical ( Branch VITAMIN ORAL) Yes Take by DGTS vit 7-13 mouth. ity of no.124/iron 14:01: [place] /folic 45 Medical ( Branch VITAMIN ORAL) Yes Take by Univer s vit 7-13 mouth. ity of no.124/iron 14:01: [place] /folic 45 Medical ( Branch VITAMIN ORAL) Yes Take by Univer s vit 7-13 mouth. ity of no.124/iron 14:01: [place] /folic 45 Medical ( Branch VITAMIN ORAL) Yes Take by Univer s vit 7-13 mouth. ity of no.124/iron 14:01: [place] /folic 45 Medical ( Branch VITAMIN ORAL) Yes Take by Univer s vit 7-13 mouth. ity of no.124/iron 14:01: [place] /folic 45 Medical ( Branch VITAMIN ORAL) Yes Take by Univer s vit 7-13 mouth. ity of no.124/iron 14:01: [place] /folic 45 Medical ( Branch VITAMIN ORAL) Yes Take by Univer s vit 7-13 mouth. ity of no.124/iron 14:01: [place] /folic 45 Medical ( Branch VITAMIN ORAL) Yes Take by Univer s vit 7-13 mouth. ity of no.124/iron 14:01: [place] /[place] [address] Medical ( Branch VITAMIN ORAL) escitalopra Yes 10mg Take 10 mg Univers m oxalate 7-13 by mouth ity of 10 mg 14:01: daily. [place] tablet [address] [place] [address] norgestimat Yes Take by Uni vers e-ethinyl 7-13 mouth. ity of estradiol 14:01: [place] (MONO-LINYA 45 Medical H ORAL) [place] Yes Take by Univer s vit 7-13 mouth. ity of no.124/iron 14:01: [place] /[place] [address] Medical ( Branch VITAMIN ORAL) MELOXICAM Yes Take by Unive rs ORAL 7-13 mouth. ity of 14:01: [address] escitalopra Yes 10mg Take 10 mg Univers m oxalate 7-13 by mouth ity of 10 mg 14:01: daily. [place] tablet 45 [facility] norgestimat Yes Take by Uni vers e-ethinyl 7-13 mouth. ity of estradiol 14:01: [place] (MONO-LINYA 45 Medical H ORAL) Branch Yes Take by Univer s vit 7-13 mouth. ity of no.124/iron 14:01: [place] /[place] [address] Medical ( Branch VITAMIN ORAL) MELOXICAM Yes Take by Unive rs ORAL 7-13 mouth. ity of 14:01: [place] [address] Medical Branch Yes [id number] 1{tbl} Take 1 U nivers multivitami 7-13 tablet by ity of n ( 00:00: [place] VITAMIN[place] 00 the Medical tablet morning. Branch Yes [id number] 1{tbl} Take 1 U nivers multivitami 7-13 tablet by ity of n ( [place] VITAMIN[place] 00 the Medical tablet morning. Branch Yes [id number] 1{tbl} Take 1 U nivers multivitami 7-13 tablet by ity of n ( [place] VITAMIN[place] 00 the Medical tablet morning. Branch Yes [id number] 1{tbl} Take 1 U nivers multivitami 7-13 tablet by ity of n ( [place]: [place] VITAMIN[place] 00 the Medical tablet morning. Branch Yes [id number] 1{tbl} Take 1 U nivers multivitami 7-13 tablet by ity of n ( 00:00: [place] VITAMIN[place] 00 the Medical tablet morning. Branch Yes [id number] 1{tbl} Take 1 U nivers multivitami 7-13 tablet by ity of n ( 00:00: [place] VITAMIN[place] 00 the Medical tablet morning. Branch Yes [id number] 1{tbl} Take 1 U nivers multivitami 7-13 tablet by ity of n ( 00:00: [place] VITAMIN[place] 00 the Medical tablet morning. Branch Yes [id number] 1{tbl} Take 1 U nivers multivitami 7-13 tablet by ity of n ( 00:00: [place] VITAMIN[place] 00 the Medical tablet morning. Branch Yes [id number] 1{tbl} Take 1 U nivers multivitami 7-13 tablet by ity of n ( 00:00: [place] VITAMIN[place] 00 the Medical tablet morning. Branch 0 Yes [id number] 1{tbl} Take 1 U nivers multivitami 7-13 tablet by ity of n ( 00:00: [place] VITAMIN[place] 00 the Medical tablet morning. Branch Yes [id number] 1{tbl} Take 1 U nivers multivitami 7-13 tablet by ity of n ( 00:00: [place] VITAMIN[place] 00 the Medical tablet morning. Branch Yes [id number] 1{tbl} Take 1 U nivers multivitami 7-13 tablet by ity of n ( 00:00: [place] VITAMIN[place] 00 the Medical tablet morning. [place] escitalopra Yes 10mg Take 10 mg Univers m oxalate 3 by mouth ity of 10 mg 12:50: daily. [place] tablet 15 Medical Branch norgestimat Yes Take by Uni vers e-ethinyl 3- mouth. ity of estradiol 12:50: [place] (MONO-LINYA 15 Medical H ORAL) [place] Immunizations Ordered Filled Immunization Date Status Comments [facility] e Immunization Name Name TDAP 2022-08-12 Completed [facility] 00:00:00 [facility] Vital Signs Vital Name Observation Time Observation Value Comments Source Systolic blood 2022-08-12 18:38:00 122 mm[Hg[facility] Diastolic blood 2022-08-12 18:38:00 69 mm[Hg] [facility] rate 2022-08-12 18:38:00 82 /min [facility] Body temperature 2022-08-12 18:38:00 37 [facility] Respiratory rate 2022-08-12 18:38:00 18 /min [facility] Body height 2022-08-12 18:38:00 170.2 cm [facility] Body weight 2022-08-12 18:38:00 92.761 kg [facility] BMI 2022-08-12 18:38:00 32.03 kg/m2 [facility] [place] [facility] Systolic blood 2022-07-29 19:40:00 118 mm[Hg] Univer sity of pressure [place] [facility] Diastolic blood 2022-07-29 19:40:00 67 mm[Hg] Unive rsity of pressure [place] [facility] Heart rate 2022-07-29 19:40:00 84 /min [facility] [place] [facility] Body temperature 2022-07-29 19:40:00 36.61 Louise Univ ers[facility] [place] [facility] Respiratory rate 2022-07-29 19:40:00 20 /min Univ ers[facility] [place] [facility] Body height 2022-07-29 19:40:00 170.2 cm [facility] [place] [facility] Body weight 2022-07-29 19:40:00 93.804 kg [facility] [place] [facility] BMI 2022-07-29 19:40:00 32.39 kg/m2 [facility] [place] [facility] Systolic blood 2022-07-08 21:02:00 136 mm[Hg] Univer sity of pressure [place] [facility] Diastolic blood 2022-07-08 21:02:00 75 mm[Hg] Unive rsity of pressure [place] [facility] Heart rate 2022-07-08 21:02:00 94 /min [facility] [place] [facility] Body temperature 2022-07-08 21:02:00 36.67 Louise [facility] [place] [facility] Respiratory rate 2022-07-08 21:02:00 18 /min Univ ersity [facility] [place] [facility] Body height 2022-07-08 21:02:00 170.2 cm [facility] [place] [facility] Body weight 2022-07-08 21:02:00 93.895 kg [facility] [place] [facility] BMI 2022-07-08 21:02:00 32.42 kg/m2 [facility] [place] [facility] Systolic blood 2022-06-24 18:48:00 117 mm[Hg] Univer sity of pressure [place] [facility] Diastolic blood 2022-06-24 18:48:00 66 mm[Hg] Unive rsity of pressure [place] [facility] Heart rate 2022-06-24 18:48:00 87 /min [facility] [place] [facility] Body temperature 2022-06-24 18:48:00 36.56 Louise [facility] [place] [facility] Respiratory rate 2022-06-24 18:48:00 16 /min [facility] Body height 2022-06-24 18:48:00 170.2 cm Universi ty [facility] Body weight 2022-06-24 18:48:00 94.212 kg Universi ty [facility] BMI 2022-06-24 18:48:00 32.53 kg/m2 Universi ty [facility] Systolic blood 2022-06-09 18:54:00 128 mm[Hg] Univer sity of pressure [facility] Diastolic blood 2022-06-09 18:54:00 75 mm[Hg] Unive rsity of [facility] Heart rate 2022-06-09 18:54:00 102 /min [facility] Body temperature 2022-06-09 18:54:00 36.61 [facility] Respiratory rate 2022-06-09 18:54:00 20 /min [facility] Body height 2022-06-09 18:54:00 170.2 cm Universi ty [facility] Body weight 2022-06-09 18:54:00 92.761 kg [facility] BMI 2022-06-09 18:54:00 32.03 kg/m2 [facility] Procedures Procedure Date / Time Performing Clinician Source Performed POCT URINALYSIS 2022-08-12 19:34:00 Yenny Chung [facility] HIV 1/2 AG-AB WITH REFLEX 2022-08-12 19:23:00 Yenny Chung [facility] TDAP VACCINE, >11 YRS, IM 2022-08-12 18:46:21 Yenny Chung [facility] POCT URINALYSIS 2022-07-29 00:00:00 Yenny Chung [facility] INSURANCE CORRESPONDENCE 2022-07-27 05:01:00 Doctor Unassigned, [facility] Name Medical Branch INSURANCE CORRESPONDENCE 2022-07-14 05:01:00 Doctor Unassigned, [facility] [place] [facility] POCT URINALYSIS 2022-07-08 21:05:00 Yenny Chung [facility] EXTERNAL PROVIDER RECORDS 2022-06-25 05:01:00 Doctor Unassigned, [facility] [place] [facility] PAP SMEAR-LIQUID BASED-CP 2022-06-09 20:53:00 Yenny Chung [facility] GLUCOSE 1 HOUR POST 2022-06-09 19:52:00 Yenny Chung [facility] CBC WITH DIFF 2022-06-09 19:52:00 Yenny Chung [facility] RUBELLA SCREEN IGG 2022-06-09 19:52:00 Yenny Chung [facility] VZV ANTIBODY SCREEN 2022-06-09 19:52:[address] [facility] HEPATITIS B SURFACE 2022-06-09 19:52:00 Yenny Chung [facility] ANTIGEN [facility] HB ABO GROUPING 2022-06-09 19:52:00 Yenny Chung [facility] HIV 1/2 AG-AB WITH REFLEX 2022-06-09 19:52:00 Yenny Chung [facility] GALV ONLY - SYPHILIS 2022-06-09 19:52:00 [facility] POCT TEST 2022-06-09 18:45:[address] [facility] POCT URINALYSIS W/O 2022-06-09 18:45:00 Yenny Chung [facility] SPECIFIC GRAVITY [facility] ASSIGNMENT OF BENEFITS 2022-06-09 18:25:09 Doctor Unassigned, [facility] [place] [facility] Encounters Start End Encounter Admission Attending Care Care Encounter Source Date/Time Date/Time Type Type Clinicians Facility Department ID 2022-08-26 2022-08-26 Outpatient R [facility] [id number] Univers 15:00:00 15:00:00 [id number] [facility] 2022-08-12 2022-08-12 Outpatient R [facility] [id number] Univers 13:00:00 14:22:40 YENNY ity o f [facility] 2022-08-12 2022-08-12 Routine Yenny Chung [facility] 1.2.8 40.114 [id number] Univers 13:00:00 14:22:40 Mila Charmaine Tavera [employer] 350.1.13.10 ity of Visit REGIONAL 4.2.7.2.686 Wilmer as MATERNAL [id number] [facility] & CHILD [address] [place] [address] 2022-08-12 2022-08-12 Outpatient R [facility] [id number] Univers 13:00:00 13:00:00 [id number] [facility] 2022-08-09 2022-08-09 Outpatient R MILATHE [facility] [id number] Univers 15:40:44 23:59:00 CHARMAINE [facility] 2022-08-09 2022-08-09 Outpatient R MILA [facility] [id number] Univers 16:00:00 16:00:00 CHARMAINE [id number] [facility] 2022-07-30 2022-07-30 Talent Recruiter Lab, Ang-Rmchp [facility] 1.2.840. 114 [id number] Univers 10:30:00 10:46:59 Visit Omar Chungjohn Curry [employer] 350.1.13. 10 ity of REGIONAL 4.2.7.2.686 [place] as MATERNAL [id number] [facility] & [address] 2022-07-30 2022-07-30 Outpatient R [facility] [id number] Univers 10:30:00 10:30:00 [id number] [facility] 2022-07-30 2022-07-30 [facility] [id number] Univers 10:30:00 10:30:00 YENNY ity o f [facility] 2022-07-29 2022-07-29 Outpatient R MILAT[facility] [id number] Univers 14:30:00 15:16:47 CHARMAINE [facility] 2022-07-29 2022-07-29 Routine Risk, Wnv-Jtpxn-Rn/High [facility] 1. 2.840.114 [id number] Univers 14:30:00 15:16:47 Charmaine Zaragoza [employer] 350.1.13.10 ity of Visit REGIONAL 4.2.7.2.686 [place] as MATERNAL [id number] Med ical & CHILD [address] [place] [address] 2022-07-29 2022-07-29 Outpatient R [facility] [id number] Univers 14:30:00 14:30:00 [id number] [facility] 2022-07-27 2022-07-27 Outpatient R MILATHE [facility] [id number] Univers 13:00:00 13:00:00 CHARMAINE [id number] [facility] 2022-07-27 2022-07-27 Outpatient R CHASTHE [facility] [id number] Univers 13:00:00 13:00:00 SENDIL [facility] 2022-07-27 2022-07-27 Orders Doctor CISCO 1.2.840.114 [id number] Univers 00:00:00 00:00:00 Only Unassigned, CRISTY 350.1.13.10 ity of [place] [facility] 4.2.7.2.686 [place] as [id number] [address] 2022-07-26 2022-07-26 Abstract Nelson [facility] 1.2.840.114 [id number] Univers 00:00:00 00:00:00 Ron Horn [employer] 350.1.13.10 ity of REGIONAL 4.2.7.2.686 [place] as MATERNAL [id number] [facility] ical & CHILD [address] [place] [address] 2022-07-22 2022-07-22 Talent Recruiter Ultrasound, Vijay [facility] 1.2 .840.114 [id number] Univers 13:30:00 14:30:00 Visit Belkis Houser [employer] ENGINEER 350.1. 13.10 ity of [facility] 4.2.7.2.686 [place] as MATERNAL [id number] [facility] ical & CHILD [address] [facility] 2022-07-22 2022-07-22 Outpatient R [facility] [id number] Univers 13:30:00 13:30:00 [id number] ity [facility] 2022-07-22 2022-07-22 Outpatient P CHANDLER [facility] [id number] Univers 13:30:00 13:30:00 TIMO it y of S, TAMAYO [facility] 2022-07-15 2022-07-15 Outpatient R MILATHE [facility] [id number] Univers 11:00:00 11:00:00 CHARMAINE [id number] ity [facility] 2022-07-15 2022-07-15 Outpatient R CHAS [facility] [id number] Univers 11:00:00 11:00:00 SENDIL ity [facility] 2022-07-14 2022-07-14 Orders Doctor PECK 1.2.840.114 [id number] Univers 00:00:00 00:00:00 Only Unassigned, CRISTY 350.1.13.10 ity of [place] [facility] 4.2.7.2.686 Wil[place] as [id number] [address] 2022-07-08 2022-07-08 Outpatient R MILA [facility] [id number] Univers 15:30:00 16:31:10 CHARMAINE [facility] 2022-07-08 2022-07-08 Routine Risk, Vpt-Sfcuh-Wv/High [facility] 1. 2.840.114 [id number] Univers 15:30:00 16:31:10 Charmaine Zaragoza [employer]INEER 350.1.13.10 ity of Visit [facility] 4.2.7.2.686 [place] as MATERNAL [id number] Med ical & CHILD 107 [facility] 2022-07-08 2022-07-08 Outpatient R [facility] [id number] Univers 15:30:00 15:30:00 [id number] [facility] 2022-06-25 2022-06-25 Orders Doctor PECK 1.2.840.114 [id number] Univers 00:00:00 00:00:00 Only Unassigned, CRISTY 350.1.13.10 ity of [place] [facility] 4.2.7.2.686 Wil[place] as [id number] [address] 2022-06-24 2022-06-24 Routine Risk, Tss-Ojrne-Uo/High [place] 1. 2.840.114 [id number] Univers 13:15:00 14:27:31 Charmaine Zaragoza RF [employer]OW[employer] ENGINEER 350.1.13.10 ity of Visit REGIONAL 4.2.7.2.686 [place] as MATERNAL [id number] Med ical & CHILD [address] [place] [address] 2022-06-24 2022-06-24 Outpatient R MILA [facility] [id number] Univers 13:15:00 14:27:31 CHARMAINE ity [facility] 2022-06-24 2022-06-24 Outpatient R [facility] [id number] Univers 13:15:00 13:15:00 [id number] ity [facility] 2022-06-24 2022-06-24 Outpatient R [facility] [id number] Univers 13:15:00 13:15:00 ity [facility] 2022-06-18 2022-06-18 Case Nelson [facility] 1.2.840.114 [id number] Univers 00:00:00 00:00:00 Management Ron Horn RF [employer]OWAVE ENGINEER 350.1.13.10 ity of REGIONAL 4.2.7.2.686 [place] as MATERNAL [id number] [facility] ical & CHILD [address] [place] [address] 2022-06-09 2022-06-09 Outpatient R JULIET [facility] [id number] Univers 14:15:00 15:00:35 YENNY ity o f [facility] 2022-06-09 2022-06-09 [facility] 1.2.683.611 [id number] Univers 14:15:00 15:00:35 Yenny Curry RF [employer]OWAVE ENGINEER 350.1.13.10 ity of Visit REGIONAL 4.2.7.2.686 [place] as MATERNAL [id number] Med ical & CHILD [address] [place] [address] 2022-06-09 2022-06-09 Outpatient R AKINSINELSY, [facility] [id number] Univers 14:15:00 14:15:00 YENNY [id number] irisdemetrius muniz [facility] 2022-06-09 2022-06-09 Orders Doctor PECK 1.2.840.114 [id number] Univers 00:00:00 00:00:00 Only Unassigned, CRISTY 350.1.13.10 ity of [place] [facility] 4.2.7.2.686 Wilmer as [id number] [address] 2022-05-26 2022-05-26 Outpatient R AKINSIPE, [facility] [id number] Univers 10:00:00 10:00:00 YENNY [id number] irisdemetrius o [facility] 2022-05-26 2022-05-26 Outpatient R JULIET, [facility] [id number] Univers 09:30:00 09:30:00 YENNY simmonsdemetrius [facility] 2020-02-23 2020-02-23 Telephone CISCO Wall 1.2.581.681 [id number] 00:00:00 00:00:00 Arianacresencio [place] 350.1.13.10 [facility] 4.2.7.2.686 [id number] 2020-02-22 2020-02-22 Telephone Beth [facility] 1.2.840.114 [id number] 00:00:00 00:00:00 , [facility] 350.1.13.10 M [place] 4.2.7.2.686 Professio [id number] nal [address] 2020-02-21 2020-02-21 Outpatient R LISA, [facility] [id number] Univers 13:00:00 13:00:00 VIRI rubalcava [facility] 2020-02-21 2020-02-21 Urgent Pob1, Acute [facility] 1.2.840.114 [id number] 12:37:37 12:57:37 [facility] 350.1.13.10 [place] 4.2.7.2.686 Professio [id number] nal [address] 2020-02-21 2020-02-21 Orders Doctor CISCO 1.2.840.114 [id number] 00:00:00 00:00:00 Only Unassigned, CRISTY 350.1.13.10 [place] [facility] 4.2.7.2.686 [id number] Results Test Description Test Time Test Comments Results Result Comments Source HIV 1/2 AG-AB WITH REFLEX 2022-08-13 05:07:21 Test Item Value Reference Range Interpretation Comme nts HIV Semi-quantitative (test code = Negative Negative 89558-5) ADELFO (test code = ADELFO) Non-reactive for HIV-1 antigen and HIV-1/HIV-2 antibodies. ?No laboratory evidence of HIV infection. ?Repeat in 2-4 weeks if acute HIV infection is suspected. [facility] URINALYSIS W SPECIFIC [id number] 19:34:00 Test Item Value Reference Range Interpretation Comments POCT U SP GRAV (test code = 3255) . 1.005-1.025 POCT PH U (test code = 3254) . 5-8 POCT U LEUK EST (test code = 3263) . Negative - Negative POCT U NIT (test code = 3262) . Negative - Negative POCT U PROT (test code = 3259) Trace Negative - Negative POCT U GLU (test code = 3256) Neg Negative - Negative POCT U KETONE (test code = 3258) . Negative - Negative POCT U UROBILI (test code = 3260) . 0.2-1 POCT U BILI (test code = 3261) . Negative - Negative POCT U BLD (test code = 3257) . Negative - Negative POCT U COLOR (test code = 3266) . POCT U APPEAR (test code = 3267) . [facility] URINALYSIS W SPECIFIC [id number] 19:45:00 Test Item Value Reference Range Interpretation Comments POCT U SP GRAV (test code = . 1.005-1.025 3255) POCT PH U (test code = 3254) 6 mg/dl 5-8 POCT U LEUK EST (test code = negative Negative - Negative 3263) POCT U NIT (test code = 3262) negative Negative - Negative POCT U PROT (test code = 3259) trace Negative - Negative POCT U GLU (test code = 3256) negative Negative - Negative POCT U KETONE (test code = 3258) negative Negative - Negative POCT U UROBILI (test code = negative 0.2-1 3260) POCT U BILI (test code = 3261) . Negative - Negative POCT U BLD (test code = 3257) negative Negative - Negative POCT U COLOR (test code = 3266) . POCT U APPEAR (test code = 3267) . [facility] [id number] 21:05:00 Test Item Value Reference Range Interpretation Comments POCT U SP GRAV (test code = 3255) . 1.005-1.025 POCT PH U (test code = 3254) 5 mg/dl 5-8 POCT U LEUK EST (test code = trace Negative - Negative 3263) POCT U NIT (test code = 3262) neg Negative - Negative POCT U PROT (test code = 3259) trace Negative - Negative POCT U GLU (test code = 3256) trace Negative - Negative POCT U KETONE (test code = 3258) 2+ Negative - Negative POCT U UROBILI (test code = 3260) . 0.2-1 POCT U BILI (test code = 3261) . Negative - Negative POCT U BLD (test code = 3257) trace Negative - Negative POCT U COLOR (test code = 3266) . POCT U APPEAR (test code = 3267) . [facility]SE[facility] [id number] 16:41:26 Test Item Value Reference Range Interpretation Comments Rubella screen IgG Equivocal Negative (test code = 8438517291) ADELFO (test code = ADELFO) Positive - Indicates the patient was exposed to Rubella through infection or vaccination.Negative - Indicates the patient could be susceptible to Rubella infection.Equivocal - A second specimen should be sent. [facility] [id number] 16:41:26 Test Item Value Reference Range Interpretation Comments VZV IgG antibody Positive Negative (test code = 27436-5) ADELFO (test code = ADELFO) Positive - Indicates the patient was exposed to VZV through infection or vaccination.Negative - Indicates the patient could be susceptible to VZV infection.Equivocal - A second specimen should be sent for testing. [facility] ONLY - SYPHILIS [id number] 15:07:36 Test Item Value Reference Range Interpretation Comments Syphilis IgG/IgM (test Non-reactive Non-reactive code = 90273-3) ADELFO (test code = ADELFO) Non-reactive - No serologic evidence of T. pallidum infection. Cannot exclude incubating or early syphilis. Submit a second specimen in 2-4 weeks if syphilis is clinically suspected. Equivocal - Further testing to follow. Reactive - Further testing to follow. Lab Interpretation (test Normal code = 49110-9) [facility], BLOOD [id number] 08:56:58 Test Item Value Reference Range Interpretation Comments ABO & RH (test code A POSITIVE Performe d at [facility] = 20) Laboratory Serv [facility] Blood Bank3 [address] [facility] s [id number] Free: [phone] A No. [id number] IAT (test code = Negative Performed a t [facility] 1185) Laboratory Serv [facility] Blood [facility]3 [facility] s [id number] Free: [phone] A No. [id number] [facility] 1/2 AG-AB WITH [id number] 07:13:30 Test Item Value Reference Range Interpretation Comments HIV Negative Negative Semi-quantitative (test code = 30259-1) ADELFO (test code = Non-reactive for HIV-1 ADELFO) antigen and HIV-1/HIV-2 antibodies. ?No laboratory evidence of HIV infection. ?Repeat in 2-4 weeks if acute HIV infection is suspected. [facility] SURFACE [id number] 05:35:32 Test Item Value Reference Range Interpretation Comments HBsAg Semi-Quantitative (test code = Negative Negative 5195-3) [facility] 1 HOUR POST [id number] 05:20:04 Test Item Value Reference Range Interpretation Comments GLUC 1 HR (test code = 9896899400) 102 mg/dL 120-170 L Lab Interpretation (test code = Abnormal 03515-7) [facility] WITH [id number] 05:03:59 Test Item Value Reference Range Interpretation Comments WBC (test code = See_Comment H [Automated 6690-2) message] The system which generated this result transmit jame reference range : 4.30 - 11.10 10*3/?L. The reference range was not used to interpret this result as normal/abnormal . RBC (test code = See_Comment [Automated 789-8) message] The system which generated this result transmit jame reference range : 3.93 - 5.25 10*6/?L. The reference range was not used to interpret this result as normal/abnormal . HGB (test code = 11.1 g/dL 11.6-15 L 718-7) HCT (test code = 34.1 % 35.7-45.2 L 4544-3) MCV (test code = 83.8 fL 80.6-95.5 787-2) MCH (test code = 27.3 pg 25.9-32.8 785-6) MCHC (test code = 32.6 g/dL 31.6-35.1 786-4) RDW-SD (test code = 41.2 fL 39-49.9 15702-5) RDW-CV (test code = 13.4 % 12-15.5 788-0) PLT (test code = See_Comment [Automated 777-3) message] The system which generated this result transmit jame reference range : 166 - 358 10*3/ ?L. The reference range was not u sed to interpret th is result as normal/abnormal . MPV (test code = 10.5 fL 9.5-12.9 85303-2) NRBC/100 WBC (test See_Comment [Automat ed code = 1182187123) message] The system which generated this result transmit jame reference range : 0.0 - 10.0 /100 WBCs. The reference range was not used to interpret this result as normal/abnormal . NRBC x10^3 (test code See_Comment [Auto mated = [id number]) message] The system which generated this result transmit jame reference range : 10*3/?L. The reference range was not used to interpret this result as normal/abnormal . GRAN MAT (NEUT) % 78.3 % (test code = 770-8) IMM GRAN % (test code 0.50 % = 4966327039) LYMPH % (test code = 14.0 % 736-9) MONO % (test code = 6.3 % 5905-5) EOS % (test code = 0.7 % 713-8) BASO % (test code = 0.2 % 706-2) GRAN MAT x10^3(ANC) 11.58 10*3/uL 1.88-7.09 H (test code = 6630480210) IMM GRAN x10^3 (test 0.08 10*3/uL 0-0.06 H code = 7189663819) LYMPH x10^3 (test code 2.08 10*3/uL 1.32-3.29 = 731-0) MONO x10^3 (test code 0.93 10*3/uL 0.33-0.92 H = 742-7) EOS x10^3 (test code = 0.11 10*3/uL 0.03-0.39 711-2) BASO x10^3 (test code 0.03 10*3/uL 0.01-0.07 = 704-7) Lab Interpretation Abnormal (test code = 71136-6) [facility] W/O SPECIFIC [id number] 18:45:00 Test Item Value Reference Range Interpretation Comments POCT PH U (test code = 3254) 5 mg/dl 5-8 POCT U LEUK EST (test code = Trace Negative - Negative 3263) POCT U NIT (test code = 3262) Neg Negative - Negative POCT U PROT (test code = 3259) 1+ Negative - Negative POCT U GLU (test code = 3256) Neg Negative - Negative POCT U KETONE (test code = 3258) None Negative - Negative POCT U BLD (test code = 3257) Large Negative - Negative [facility]PO[facility] [id number] 18:45:00 Test Item Value Reference Range Interpretation Comments POCT PREG (test code = 1605) Positive On board controls acceptable with C Yes Line (test code = 3574) POCT PREG LOT # (test code = 3575) POCT PREG TEST DATE (test code = 3576) [facility]
[2022-08-16 00:40] LABS: Protime INR 1.05
[2022-08-16 00:42] LABS: Absolute Lymphocytes (CBC) 2.8 K/uL (0.7-4.9); Hematocrit 30.8 % (36.0-45.0); Lymphocytes % 20.5 % (15.3-44.8); MCV 77.2 fL (80-100); MPV 7.8 fL (7.6-11.3); RBC Red Blood Cell Count 3.99 M/uL (3.86-4.86)
--- NOTE | 2022-08-16 00:51 | EDPHYS ---
Physician Documentation [facility] Name: Kristina Nathan Age: 21 yrs Sex: Female : 2000 Arrival Date: 08/15/2022 Time: 23:37 Bed 4 Private MD: ED Physician Marcial Rojas HPI: 08/16 00:39 This 21 yrs old Female presents to ER via Ambulatory with complaints of melyssa Numbness, Right side. 00:39 The patient's problem is reported as paresthesias, in right upper extremity, in right melyssa lower extremity, in right side of face, weakness, in the right upper extremity, in the right lower extremity, in the right side of face. Onset: The symptoms/episode began/occurred 30 minute(s) ago. Duration: The episode is continuous. Context: the episode(s) was witnessed, by family, symptoms became apparent at 23:30. occurred at home. The symptoms are alleviated by nothing. The symptoms are aggravated by nothing. Associated signs and symptoms: Pertinent positives: weakness. Severity of symptoms: At their worst the symptoms were mild. Patient's baseline: Neuro: alert and fully oriented. The patient has not experienced similar symptoms in the past. 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 ROS: 08/16 00:39 Constitutional: Negative for fever, chills, and weight loss, Eyes: Negative for injury, melyssa pain, redness, and discharge, ENT: Negative for injury, pain, and discharge, Neck: Negative for injury, pain, and swelling, Cardiovascular: Negative for chest pain, palpitations, and edema, Respiratory: Negative for shortness of breath, cough, wheezing, and pleuritic chest pain, Abdomen/GI: Negative for abdominal pain, nausea, vomiting, diarrhea, and constipation, Back: Negative for injury and pain, : Negative for injury, bleeding, discharge, and swelling, MS/Extremity: Negative for injury and deformity, Skin: Negative for injury, rash, and discoloration, Psych: Negative for depression, anxiety, suicide ideation, homicidal ideation, and hallucinations, Allergy/Immunology: Negative for hives, rash, and allergies, Endocrine: Negative for neck swelling, polydipsia, polyuria, polyphagia, and marked weight changes, Hematologic/Lymphatic: Negative for swollen nodes, abnormal bleeding, and unusual bruising. Neuro: Positive for numbness, weakness, of the face, right arm and right leg. Exam: 00:39 Constitutional: This is a well developed, well nourished patient who is awake, alert, melyssa and in no acute distress. Head/Face: Normocephalic, atraumatic. Eyes: Pupils equal round and reactive to light, extra-ocular motions intact. Lids and lashes normal. Conjunctiva and sclera are non-icteric and not injected. Cornea within normal limits. Periorbital areas with no swelling, redness, or edema. ENT: Nares patent. No nasal discharge, no septal abnormalities noted. Tympanic membranes are normal and external auditory canals are clear. Oropharynx with no redness, swelling, or masses, exudates, or evidence of obstruction, uvula midline. Mucous membranes moist. Neck: Trachea midline, no thyromegaly or masses palpated, and no cervical lymphadenopathy. Supple, full range of motion without nuchal rigidity, or vertebral point tenderness. No Meningismus. Chest/axilla: Normal chest wall appearance and motion. Nontender with no deformity. No lesions are appreciated. Cardiovascular: Regular rate and rhythm with a normal S1 and S2. No gallops, murmurs, or rubs. Normal PMI, no JVD. No pulse deficits. Respiratory: Lungs have equal breath sounds bilaterally, clear to auscultation and percussion. No rales, rhonchi or wheezes noted. No increased work of breathing, no retractions or nasal flaring. Abdomen/GI: Soft, non-tender, with normal bowel sounds. No distension or tympany. No guarding or rebound. No evidence of tenderness throughout. Back: No spinal tenderness. No costovertebral tenderness. Full range of motion. Female : Normal external genitalia. Skin: Warm, dry with normal turgor. Normal color with no rashes, no lesions, and no evidence of cellulitis. MS/ Extremity: Pulses equal, no cyanosis. Neurovascular intact. Full, normal range of motion. Psych: Awake, alert, with orientation to person, place and time. Behavior, mood, and affect are within normal limits. 00:39 Neuro: Orientation: is normal, appropriate for stated age, no acute changes, Mentation: is normal, appropriate for stated age, no acute changes, Memory: is normal, appropriate for stated age, no acute changes, Cranial nerves: grossly normal, is grossly normal based on the patient's age, no acute changes, Cerebellar function: is grossly normal, is grossly normal based on the patient's age, no acute changes, Motor: moves all fours, strength is 5/5 in all extremities, Gait: not applicable is steady, appropriate for age, is unsteady. 00:52 Radiologist reports: NEGATIVE [facility] 00:54 ECG was reviewed by the Attending Physician. [facility] Vital Signs: 08/15 23:47 BP 170 / 95; Pulse 77; Resp 16; Temp 97.9; Pulse Ox 100% on R/A; Pain 0/10; hb 08/16 00:50 BP 136 / 60; Pulse 79; Resp 15; Pulse Ox 100% on R/A; ll3 NIH Stroke Scale Scores: 00:54 NIHSS Score: 1 melyssa 01:08 NIHSS Score: 1 ll3 MDM: 08/15 23:49 Patient medically screened. [facility] 08/16 00:39 Data reviewed: vital signs, nurses notes, EMS record, lab test result(s), EKG, [facility] radiologic studies, CT scan, plain films. Data interpreted: volumetric weigher: rate is 77 beats/min, rhythm is regular, Pulse oximetry: on room air is 100 %. Test interpretation: by ED physician or midlevel provider: ECG, plain radiologic studies. Counseling: I had a detailed discussion with the patient and/or guardian regarding: the historical points, exam findings, and any diagnostic results supporting the discharge/admit diagnosis, lab results, radiology results, the need to transfer to another facility, for higher level of care, [facility] does not immediately have the required specialist. ED course: DR HUFFMAN , NO TPA PER PATIENT AND SIGNIFICANT OTHER. 08/15 23:51 Order name: Basic Metabolic Panel [facility] 08/15 23:51 Order name: CBC with Diff [facility] 08/15 23:51 Order name: LFT's [facility] 08/15 23:51 Order name: Magnesium [facility] 08/15 23:51 Order name: NT PRO-BNP [facility] 08/15 23:51 Order name: PT-INR [facility] 08/15 23:51 Order name: Troponin HS [facility] 08/15 23:51 Order name: XRAY Chest (1 view) [facility] 08/15 23:51 Order name: CT Stroke Brain w/o Contrast [facility] 08/15 23:51 Order name: Sed Rate [facility] 08/15 23:51 Order name: CRP [facility] 08/15 23:57 Order name: Glucose, Ancillary Testing; Complete Time: 00:32 EDMS 08/16 00:04 Order name: COVID-19 SARS RT PCR (Document "Date of Onset" if Symptomatic) mw 08/16 00:37 Order name: CT Head Angio [facility] 08/15 23:51 Order name: Cardiac monitoring; Complete Time: 00:26 [facility] 08/15 23:51 Order name: EKG - Nurse/Tech; Complete Time: 01:03 [facility] 08/15 23:51 Order name: IV Saline Lock; Complete Time: 00:26 [facility] 08/15 23:51 Order name: Labs collected and sent; Complete Time: 00:26 [facility] 08/15 23:51 Order name: O2 Per Protocol; Complete Time: 00: [facility] 08/15 23:51 Order name: O2 Sat Monitoring; Complete Time: 00:26 [facility] 08/15 23:51 Order name: FHT's; Complete Time: 01:03 [facility] 08/16 00:37 Order name: CT Neck Angio [facility] EC:54 Rate is 69 beats/min. Rhythm is regular. QRS [place] is Normal. [place] interval is normal. QRS melyssa interval is normal. QT interval is normal. No Q waves. T waves are Normal. No ST changes noted. Clinical impression: NSR w/ Non-specific ST/T Changes and No evidence of ischemia. Interpreted by me. Reviewed by me. Administered Medications: 00:26 Drug: NS 0.9% 1000 ml Route: IV; Rate: 1 bolus; Site: left antecubital; ll3 01:46 Follow up: Response: No adverse reaction; IV Status: Infusion continued; IV Intake: ll3 500ml 01:03 Drug: foLIC Acid 1 mg Route: IVPB; Site: left antecubital; ll3 01:47 Follow up: Response: No adverse reaction; IV Status: Completed infusion; IV Intake: ll3 0.2ml 01:03 Drug: Aspirin Chewable Tablet 81 mg Route: PO; ll3 01:46 Follow up: Response: No adverse reaction ll3 Point of Care Testing: Blood Glucose: 08/15 23:49 Blood Glucose: 95 mg/dL; hb Ranges: Critical Glucose Levels:Adult <50 mg/dl or >400 mg/dl <40 mg/dl or >180 mg/dl Disposition Summary: 08/16/22 00:50 Transfer Ordered Transfer Location: [facility] melyssa Reason: Higher level of care melyssa Condition: Fair melyssa Problem: new melyssa Symptoms: have improved melyssa Accepting Physician: TO [facility] ER, DR HUFFMAN(08/16/22 01:48) ll3 Diagnosis - Cerebral infarction, unspecified melyssa - Paresthesia of skin - RIGHT FACE, ARM , LEG melyssa - 28 weeks gestation of melyssa Forms: - Medication Reconciliation Form melyssa - SBAR form melyssa NIH Stroke Scale - NIH Stroke Score Date: 08/16/2022 Time: 00:54 Total Score = 1 1a. Level of Consciousness (LOC) - 0(Alert) 1b. Level of Consciousness (LOC) (Month \\T\\ Age) - 0(Both) 1c. LOC Commands (Open \\T\\ Closes Eyes/Blanker Press Operator) - 0(Both) 2. Best Gaze (Lateral Gaze Paresis) - 0(Normal) 3. Visual Field Loss - 0(No visual loss) 4. Facial Palsy - 0(Normal) 5a. Left Arm: Motor (10-second hold) - 0(No drift) 5b. Right Arm: Motor (10-second hold) - 0(No drift) 6a. Left Leg: Motor (5-second hold - always test supine) - 0(No drift) 6b. Right Leg: Motor (5-second hold - always test supine) - 0(No drift) 7. Limb Ataxia (finger/nose \\T\\ heel/osman - test with eyes open) - 0(Absent) 8. Sensory Loss (pinprick arms/legs/face) - 1(Mild to moderate loss) 9. Best Language: Aphasia (description/naming/reading) - 0(No aphasia) 10. Dysarthria (speech clarity - read or repeat words) - 0(Normal) 11. Extinction and Inattention (visual/tactile/auditory/spatial/personal) - 0(No abnormality) Initials: melyssa NIH Stroke Scale - NIH Stroke Score Date: 08/16/2022 Time: 01:08 Total Score = 1 1a. Level of Consciousness (LOC) - 0(Alert) 1b. Level of Consciousness (LOC) (Month \\T\\ Age) - 0(Both) 1c. LOC Commands (Open \\T\\ Closes Eyes/Blanker Press Operator) - 0(Both) 2. Best Gaze (Lateral Gaze Paresis) - 0(Normal) 3. Visual Field Loss - 0(No visual loss) 4. Facial Palsy - 0(Normal) 5a. Left Arm: Motor (10-second hold) - 0(No drift) 5b. Right Arm: Motor (10-second hold) - 0(No drift) 6a. Left Leg: Motor (5-second hold - always test supine) - 0(No drift) 6b. Right Leg: Motor (5-second hold - always test supine) - 0(No drift) 7. Limb Ataxia (finger/nose \\T\\ heel/osman - test with eyes open) - 0(Absent) 8. Sensory Loss (pinprick arms/legs/face) - 1(Mild to moderate loss) 9. Best Language: Aphasia (description/naming/reading) - 0(No aphasia) 10. Dysarthria (speech clarity - read or repeat words) - 0(Normal) 11. Extinction and Inattention (visual/tactile/auditory/spatial/personal) - 0(No abnormality) Initials: ll3 Signatures: Dispatcher [employer] EDMarcial Lauren MD MD cha Baxter, Heather, RN RN Bi Pelayo RN RN ll3 Corrections: (The following items were deleted from the chart) 08/16 00:53 00:[address] [facility] [address] ARMIDA GARCIA cha, cha 01:48 00:[address] [facility] [address] ARMIDA GARCIA cha 3
--- NOTE | 2022-08-16 00:51 | ER ---
Nurse's Notes [facility] Name: Kristina Nathan Age: 21 yrs Sex: Female : 2000 Arrival Date: 08/15/2022 Time: 23:37 Bed 4 Private MD: Diagnosis: Cerebral infarction, unspecified;Paresthesia of skin-RIGHT FACE, ARM , LEG;28 weeks gestation of Presentation: 08/15 23:47 Chief complaint: Right sided facial numbness, numbness and tingling in right arm and hb leg, and weakness in right leg that started while lying in bed just prior to arrival. Hx of WPW, is 7 months , SAGE 10/24. Coronavirus screen: At this time, the client does not indicate any symptoms associated with coronavirus-19. Ebola Screen: No symptoms or risks identified at this time. Risk Assessment: Do you want to hurt yourself or someone else? Patient reports no desire to harm self or others. Onset of symptoms was August 15, 2022. 23:47 Method Of Arrival: Ambulatory hb 23:47 Acuity: WILLIE [address] hb 23:[address] Rojas notified, pt placed in room 4. hb 23:50 Initial Sepsis Screen: Does the patient meet any 2 criteria? No. Patient's initial hb sepsis screen is negative. Does the patient have a suspected source of infection? No. Patient's initial sepsis screen is negative. 08/16 01:09 An acute neurological deficit is present. Pre-hospital glucose is not applicable to ll3 this patient. Triage Assessment: 01:10 The onset of the patients symptoms was August 15, 2022 at 23:30. ll3 DIRECTOR PROCESS: 01:03 Verified ll3 Stroke Activation: Symptom onset < 3 hours Physician: Stroke Attending; Name: ; Notified At: ; Arrived At: Physician: Chief Stroke Resident; Name: ; Notified At: ; Arrived At: Physician: Stroke Resident; Name: ; Notified At: ; Arrived At: Physician: ED Attending; Name: Dr. 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 Screenin/19 00:46 Abuse screen: Denies threats or abuse. Denies injuries from another. Nutritional ll3 screening: No deficits noted. Tuberculosis screening: No symptoms or risk factors identified. 01:10 Fall Risk None identified. ll3 Assessment: 00:00 General: Appears uncomfortable, Behavior is calm, cooperative, anxious. Pain: Denies ll3 pain. Neuro: Level of Consciousness is awake, alert, obeys commands, Oriented to person, place, time, situation, Claims Director are weak on right Weakness in right arm(s) leg(s) Gait is steady, Speech is normal, Facial symmetry appears normal, Tingling in right leg and right arm Numbness in right leg and right arm and face. Respiratory: Respiratory effort is even, unlabored, Respiratory pattern is regular, symmetrical. Derm: Skin is pink, warm \T\ dry. Musculoskeletal: Reports weakness in right leg and right arm. 01:08 VAN Scoring: Arm Drift: Patients demonstrates NO arm weakness. Patient is VAN Negative. ll3 Visual Disturbance: No visual disturbance noted. Aphasia: No aphasia noted. Neglect: No neglect noted. Patient has been NPO before screening. The patient is alert, and able to follow commands. The patient does not exhibit slurred or garbled speech. The patient is not exhibiting difficulty speaking. The patient does not exhibit difficulty understanding words. The patient is able to swallow own secretions with no drooling or need for suction. Patient tolerated one teaspoon of water. No drooling, immediate coughing, gurgling, or clearing of the throat was noted. The patient tolerated 90mL of water. No drooling, immediate coughing, gurgling, or clearing of the throat was noted. The patient passed the bedside swallow screening. Oral medications may be given as ordered. Contact Physician for further diet orders. Provider notified of bedside swallow screening results: Marcial Rojas MD. TNKase (Tenecteplase) Screening: Contraindications: Is the patient : Yes. Vital Signs: 08/15 23:47 BP 170 / 95; Pulse 77; Resp 16; Temp 97.9; Pulse Ox 100% on R/A; Pain 0/10; hb 08/16 00:50 BP 136 / 60; Pulse 79; Resp 15; Pulse Ox 100% on R/A; ll3 Vitals: 01:03 Heart Tones 168. ll3 NIH Stroke Scale Scores: 00:54 NIHSS Score: 1 melyssa 01:08 NIHSS Score: 1 ll3 ED Course: 08/15 23:37 Patient arrived in ED. bp1 23:49 Triage completed. hb 23:49 Macrial Rojas MD is Attending Physician. melyssa 23:49 Arm band placed on. hb 23:53 Jason Booth, RN is Primary Nurse. ke1 08/16 00:00 initiated a transfer with Anand from [facility]. mw2 00:[address] Rojas with the Doctor from [facility]. mw2 00:15 CT Stroke Brain w/o Contrast In Process Unspecified. EDMS 00:18 XRAY Chest (1 view) In Process Unspecified. EDMS 00:20 Inserted saline lock: 20 gauge antecubital area, using aseptic technique. Blood oe collected. 00:36 administrative approval given by Marni Wallace/ patient has been accepted to [address] to the ER/ Dr. Galicia accepted the patient in transfer/report to be called to [phone]. 01:10 Patient has correct armband on for positive identification. Bed in low position. Call ll3 light in reach. Side rails up X 1. Adult w/ patient. Client placed on continuous cardiac and pulse oximetry monitoring. NIBP monitoring applied. 01:10 No provider procedures requiring assistance completed. ll3 01:18 [facility] ETA 15 minutes. mw2 01:24 CT Head Angio In Process Unspecified. EDMS 01:25 CT Neck Angio In Process Unspecified. EDMS 01:45 IV discontinued, intact, bleeding controlled, No redness/swelling at site. Pressure ll3 dressing applied. Administered Medications: 00:26 Drug: NS 0.9% 1000 ml Route: IV; Rate: 1 bolus; Site: left antecubital; ll3 01:46 Follow up: Response: No adverse reaction; IV Status: Infusion continued; IV Intake: ll3 500ml 01:03 Drug: foLIC Acid 1 mg Route: IVPB; Site: left antecubital; ll3 01:47 Follow up: Response: No adverse reaction; IV Status: Completed infusion; IV Intake: ll3 0.2ml 01:03 Drug: Aspirin Chewable Tablet 81 mg Route: PO; ll3 01:46 Follow up: Response: No adverse reaction ll3 Medication: 01:04 VIS not applicable for this client. ll3 Point of Care Testing: Blood Glucose: 08/15 23:49 Blood Glucose: 95 mg/dL; hb Ranges: Intake: 08/16 01:46 IV: 500ml; Total: 500ml. ll3 01:47 IV: 0ml; Total: 500ml. ll3 Outcome: 00:50 ER care complete, transfer ordered by [facility] 01:47 Transferred by helicopter to [facility], Transfer form ll3 completed. X-rays sent w/ patient. 01:47 Condition: stable 01:47 Discharge instructions given to patient, Instructed on the need for transfer, Demonstrated understanding of instructions. 01:48 Patient left the ED. ll3 NIH Stroke Scale - NIH Stroke Score Date: 08/16/2022 Time: 00:54 Total Score = 1 1a. Level of Consciousness (LOC) - 0(Alert) 1b. Level of Consciousness (LOC) (Month \T\ Age) - 0(Both) 1c. LOC Commands (Open \T\ Closes Eyes/Logging Engineer) - 0(Both) 2. Best Gaze (Lateral Gaze Paresis) - 0(Normal) 3. Visual Field Loss - 0(No visual loss) 4. Facial Palsy - 0(Normal) 5a. Left Arm: Motor (10-second hold) - 0(No drift) 5b. Right Arm: Motor (10-second hold) - 0(No drift) 6a. Left Leg: Motor (5-second hold - always test supine) - 0(No drift) 6b. Right Leg: Motor (5-second hold - always test supine) - 0(No drift) 7. Limb Ataxia (finger/nose \T\ heel/osman - test with eyes open) - 0(Absent) 8. Sensory Loss (pinprick arms/legs/face) - 1(Mild to moderate loss) 9. Best Language: Aphasia (description/naming/reading) - 0(No aphasia) 10. Dysarthria (speech clarity - read or repeat words) - 0(Normal) 11. Extinction and Inattention (visual/tactile/auditory/spatial/personal) - 0(No abnormality) Initials: melyssa NIH Stroke Scale - NIH Stroke Score Date: 08/16/2022 Time: 01:08 Total Score = 1 1a. Level of Consciousness (LOC) - 0(Alert) 1b. Level of Consciousness (LOC) (Month \T\ Age) - 0(Both) 1c. LOC Commands (Open \T\ Closes Eyes/Logging Engineer) - 0(Both) 2. Best Gaze (Lateral Gaze Paresis) - 0(Normal) 3. Visual Field Loss - 0(No visual loss) 4. Facial Palsy - 0(Normal) 5a. Left Arm: Motor (10-second hold) - 0(No drift) 5b. Right Arm: Motor (10-second hold) - 0(No drift) 6a. Left Leg: Motor (5-second hold - always test supine) - 0(No drift) 6b. Right Leg: Motor (5-second hold - always test supine) - 0(No drift) 7. Limb Ataxia (finger/nose \T\ heel/osman - test with eyes open) - 0(Absent) 8. Sensory Loss (pinprick arms/legs/face) - 1(Mild to moderate loss) 9. Best Language: Aphasia (description/naming/reading) - 0(No aphasia) 10. Dysarthria (speech clarity - read or repeat words) - 0(Normal) 11. Extinction and Inattention (visual/tactile/auditory/spatial/personal) - 0(No abnormality) Initials: ll3 Signatures: Dispatcher [employer] EDMarcial Lauren MD MD cha Baxter, Heather, RN RN Ross Skelton MyKena mw2 Lilli Almeida Lynsea RN RN ll3 Jason Booth RN RN ke1 Corrections: (The following items were deleted from the chart) 01:47 01:45 Discharged to home ambulatory, with family, 3 3 01:47 01:45 Condition: stable 3 3 01:47 01:45 Discharge instructions given to patient, Instructed on discharge 3 instructions, follow up and referral plans. Demonstrated understanding of instructions, follow-up care, 3
[2022-08-16 00:53] LABS: ALT/SGPT 11 U/L (12-78); AST/SGOT 6 U/L (15-37); Albumin 2.5 g/dL (3.4-5.0); Alkaline Phosphatase 89 U/L (45-117); BUN Blood Urea Nitrogen 4 mg/dL (7-18); Bicarbonate 22 mmol/L (21-32); Bilirubin Total 0.2 mg/dL (0.2-1.0); Glomerular Filtration Rate 138 ml/min (=/>90); Glucose Level 92 mg/dL (74-106); Magnesium 1.9 mg/dL (1.8-2.4); NT PRO-BNP 41 pg/mL (<125); Potassium 3.5 mmol/L (3.5-5.1); Protein, Total 6.6 g/dL (6.4-8.2); Sodium Level 139 mmol/L (136-145)
[2022-08-16 01:05] LABS: Bilirubin Direct < 0.1 mg/dL (0-0.2); Troponin High Sensitivity < 3.0 pg/mL (<58.9)
[2022-08-16] MEDS ORDERED: ASPIRIN EC 81 MG TAB PO ONE (01:50)
[2022-08-16] MEDS ORDERED: NA CHLORIDE 0.9% 1,000 ML ONE (01:51)
--- NOTE | 2022-08-16 14:31 | RAD REPORT ---
EXAM DESCRIPTION: ADDENDUM #1 ADDENDUM: THIS REPORT CONTAINS FINDINGS THAT MAY BE CRITICAL TO PATIENT'S CARE: The findings were verbally discussed via telephone conference with CHINA AND SILVERWARE SALESPERSON Jami Santos by Dr. Paez on 08/16/2022 12:20 AM CDT. The results were acknowledged and understood. Electronically signed by: Dennys Paez DO 08/16/2022 12:20 AM CDT End of Addendum EXAM DESCRIPTION: Ct Stroke Brain Wo Cont CLINICAL HISTORY: 21 years Female Neuro deficit, acute, stroke suspected COMPARISON: None TECHNIQUE: Contiguous axial images of the brain were obtained without the administration of intraven ous contrast.This exam was performed according to our departmental dose-optimization program which in cludes use of Automated Exposure Control, adjustment of the mA and/or kV according to patient size an d/or use of iterative reconstruction technique. DLP: 816 mGy*cm FINDINGS: Brain: No acute intracranial hemorrhage. No extra-axial collection. No mass effect or ebtzy iation. Ventricles: Within normal limits in size. Globes and orbits: No acute abnormality. Bones: No acute osseous finding Paranasal sinuses: Paranasal sinuses are clear. Mastoid air cells: Well pneumatized. Soft tissues: Within normal limits IMPRESSION: No acute intracranial abnormality. Electronically signed by: Dennys Paez DO 08/16/2022 12:15 AM CDT Due to temporary technical issues with the PACS/Fluency reporting system, reports are being signed by the in house radiologists without review as a courtesy to insure prompt reporting. The interpreting radiologist is fully responsible for the content of the report.
--- NOTE | 2022-08-16 14:36 | RAD REPORT ---
EXAM DESCRIPTION: Head angio (accession [id number]), Neck Angio (accession [id number]) 022 1:36 AM CDT CLINICAL HISTORY: 21 years, Female, Neuro deficit, acute, stroke suspected COMPARISON: Recent head CT performed 08/16/2022. TECHNIQUE: Multiple transaxial tomograms from the aortic arch through the brain were performed after administration of a 100 cc of Omnipaque 350 at a rate of 5 cc/s for complete opacification of the ca rotid arteries and intracranial vessels. Subsequent 2-D and 3-D multiplanar reformats, volume rendering technique and maximum intensity projec tion images were generated and reviewed. Stenosis measurements were performed according to NASCET cri teria. This exam was performed according to our departmental dose-optimization protocol, which includes auto mated exposure control, adjustment of the mA and/or kV according to patient size and/or use of iterat sharona reconstruction technique. FINDINGS: Ascending aorta: There is thoracic ascending aorta was included in the field of imaging. There are codominant vertebral arteries which demonstrate normal opacification. Visualized portion s of the proximal mid and distal common carotid demonstrate to be within normal limits. Right carotid artery: Normal opacification is demonstrated within the right common carotid artery a nd at the carotid bifurcation. The right carotid bulb demonstrate to be within normal limits. There i s no evidence for significant stenosis. The proximal, mid and distal portions of the right internal c arotid artery demonstrate to be patent. There is no evidence for significant stenosis and/or occlusio n. Left carotid artery: Normal opacification is demonstrated within the left common carotid artery an d at the carotid bifurcation. The left carotid bulb demonstrate to be within normal limits. There is no evidence for significant stenosis. The proximal, mid and distal portions of the left internal sahu tid artery demonstrate to be patent. There is no evidence for significant stenosis and/or occlusion. Intracranial circulation: Intracranial portions of the internal carotid arteries the cavernous sinus portions demonstrates no focal areas of significant. There is markedly hypoplastic right A1 segment. Otherwise the anterior cerebral arteries, middle cerebral arteries and its branches demonstrate kristin l opacification with no evidence for significant stenosis aneurysm and/or occlusion. There is normal venous drainage with no evidence for significant sinus vein thrombosis. Vertebrobasilar system: The posterior circulation demonstrate codominant bilateral vertebral arteries with no evidence for significant stenosis and/or evidence for significant dissection. The vertebroba silar system and TELEVISION SCRIPT WRITER demonstrate to be normal with no evidence for aneurysm and/or occlusion. Grossly the brain parenchyma demonstrate normal badillo-white matter differentiation with no evidence fo r mass effect and/or midline shift. There is no evidence for abnormal parenchymal enhancement The skull base and intracranial structures demonstrate to be within normal limits. Lung apex: No gross abnormalities are noted within the apices. IMPRESSION: No evidence for significant stenosis and/or occlusion involving the cervical carotid or vertebral arteries. Markedly hypoplastic right A1 segment, most likely congenital. Otherwise unremarkable CT angiogram of the head with no evidence for significant stenosis, aneurysm, and/or occlusion. Electronically signed by: Yury Pulliam MD 08/16/2022 1:41 AM CDT Due to temporary technical issues with the PACS/Fluency reporting system, reports are being signed by the in house radiologists without review as a courtesy to insure prompt reporting. The interpreting radiologist is fully responsible for the content of the report.
--- NOTE | 2022-08-16 14:54 | RAD REPORT ---
EXAM DESCRIPTION: Head angio (accession [id number]), Neck Angio (accession [id number]) 022 1:36 AM CDT CLINICAL HISTORY 21 years, Female, Neuro deficit, acute, stroke suspected COMPARISON: Recent head CT performed 08/16/2022. TECHNIQUE: Multiple transaxial tomograms from the aortic arch through the brain were performed after administration of a 100 cc of Omnipaque 350 at a rate of 5 cc/s for complete opacification of the ca rotid arteries and intracranial vessels. Subsequent 2-D and 3-D multiplanar reformats, volume rendering technique and maximum intensity projec tion images were generated and reviewed. Stenosis measurements were performed according to NASCET cri teria. This exam was performed according to our departmental dose-optimization protocol, which includes auto mated exposure control, adjustment of the mA and/or kV according to patient size and/or use of iterat sharona reconstruction technique. FINDINGS: Ascending aorta: There is thoracic ascending aorta was included in the field of imaging. There are codominant vertebral arteries which demonstrate normal opacification. Visualized portion s of the proximal mid and distal common carotid demonstrate to be within normal limits. Right carotid artery: Normal opacification is demonstrated within the right common carotid artery a nd at the carotid bifurcation. The right carotid bulb demonstrate to be within normal limits. There i s no evidence for significant stenosis. The proximal, mid and distal portions of the right internal c arotid artery demonstrate to be patent. There is no evidence for significant stenosis and/or occlusio n. Left carotid artery: Normal opacification is demonstrated within the left common carotid artery an d at the carotid bifurcation. The left carotid bulb demonstrate to be within normal limits. There is no evidence for significant stenosis. The proximal, mid and distal portions of the left internal sahu tid artery demonstrate to be patent. There is no evidence for significant stenosis and/or occlusion. Intracranial circulation: Intracranial portions of the internal carotid arteries the cavernous sinus portions demonstrates no focal areas of significant. There is markedly hypoplastic right A1 segment. Otherwise the anterior cerebral arteries, middle cerebral arteries and its branches demonstrate kristin l opacification with no evidence for significant stenosis aneurysm and/or occlusion. There is normal venous drainage with no evidence for significant sinus vein thrombosis. Vertebrobasilar system: The posterior circulation demonstrate codominant bilateral vertebral arteries with no evidence for significant stenosis and/or evidence for significant dissection. The vertebroba silar system and PIPE ORGAN MECHANIC APPRENTICE demonstrate to be normal with no evidence for aneurysm and/or occlusion. Grossly the brain parenchyma demonstrate normal badillo-white matter differentiation with no evidence fo r mass effect and/or midline shift. There is no evidence for abnormal parenchymal enhancement The skull base and intracranial structures demonstrate to be within normal limits. Lung apex: No gross abnormalities are noted within the apices. IMPRESSION: No evidence for significant stenosis and/or occlusion involving the cervical carotid or vertebral arteries. Markedly hypoplastic right A1 segment, most likely congenital. Otherwise unremarkable CT angiogram of the head with no evidence for significant stenosis, aneurysm, and/or occlusion. Electronically signed by: Yury Pulliam MD 08/16/2022 1:41 AM CDT Due to temporary technical issues with the PACS/Fluency reporting system, reports are being signed by the in house radiologists without review as a courtesy to insure prompt reporting. The interpreting radiologist is fully responsible for the content of the report.
--- NOTE | 2022-08-16 15:37 | RAD REPORT ---
EXAM DESCRIPTION: XR Chest, 1 View CLINICAL HISTORY: CHEST PAIN TECHNIQUE: Frontal view of the chest. COMPARISON: No relevant prior studies available. FINDINGS: Lungs: Unremarkable. No consolidation. Pleural space: Unremarkable. No pneumothorax. Heart: Unremarkable. No cardiomegaly. Mediastinum: Unremarkable. Bones/joints: Unremarkable. IMPRESSION: No acute disease. Electronically signed by: Cassie Brian MD 08/16/2022 12:26 AM CDT Due to temporary technical issues with the PACS/Fluency reporting system, reports are being signed by the in house radiologists without review as a courtesy to insure prompt reporting. The interpreting radiologist is fully responsible for the content of the report.
[2022-08-17 10:35] VITALS: TEMP 97.9; O2SAT 100
[2022-08-17 10:37] VITALS: BP 136/60
--- NOTE | 2022-08-18 06:39 | EKG ---
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
== END 2022-08-16 01:48 | disposition short-term general hospital (02) ==
LOC: ER 23:35
DX: O99.419 Diseases of the circulatory system complicating pregnancy, unspecified trimester (principal); I63.9 Cerebral infarction, unspecified; R29.701 NIHSS score 1; Z3A.28 28 weeks gestation of pregnancy; Z20.822 Contact with and (suspected) exposure to COVID-19
CPT/HCPCS: 96365; 96361; 93005; 85025; 80048; 36415; 83735; 85610; 82947; 80076; 85652; 84484; 83880; 86140; 70496; 70498; 70450; 71045; 99285; U0003; Q9967; J7030